=== PATIENT | female | born 1990 | race Caucasian/White ===

== ENCOUNTER → 2018-11-12 10:21 | Outpatient (CLI) | payer OTHER, SELFPAY ==
--- NOTE | 2018-11-12 10:25 | DI.US.S_ITS ---
PROCEDURE: US OB <= 14 WEEKS FETUS INDICATIONS: DATING OUTSIDE/PRIOR DATING DATA: Last menstrual period (LMP): 09/12/18. LMP-based estimated date of delivery (AJITH): 06/19/19. First dating scan (date and location): 11/12/18. Estimated date of delivery (AJITH) from first dating scan: 07/01/19. TECHNIQUE: Real-time scanning was performed of the fetus and maternal pelvic organs, with image documentation. Endovaginal scanning was also performed to better visualize the fetus and maternal ovaries. COMPARISON: None. FINDINGS: Embryo: [place]-rump length measures 1.0 cm corresponding to 7 weeks 0 days. Heart rate measures 132 beats per minute. Measurement variability in dating: +/- 4 weeks by LMP, +/- 7 days by mean sac diameter (use before 6 weeks gestation if crown-rump length not able to be measured), +/- 5 days by crown-rump length (up to 8 weeks 6 days gestation), +/- 7 days by crown-rump length (up to 13 weeks 6 days gestation). Maternal organs: Normal left ovary. Right corpus luteal cyst present. . Limited images through the kidneys demonstrate no hydronephrosis. IMPRESSION: 1. 7 week 0 day single living IUP. Dictated by: Krystian MOSS Interpreted: Alicia Lopez MD on 11/12/2018 at 13:23 Approved by: Alicia Lopez M.D. on 11/12/2018 at 14:01
== END ==
PROVIDERS: PCP Obstetrics & Gynecology; Visit Provider Obstetrics & Gynecology
DX: Z34.01 Encounter for supervision of normal first pregnancy, first trimester (principal); Z3A.01 Less than 8 weeks gestation of pregnancy
CPT/HCPCS: 76801; 76817

== ENCOUNTER → 2018-11-25 14:23 | Outpatient (CLI) | payer OTHER, SELFPAY ==
[2018-11-25 15:14] LABS: Add Manual Diff / Slide Review NO; Basophils Absolute Auto 0 /uL (0-100); Basophils Percent Auto 0.5 % (0-2); Eosinophils Absolute Auto 100 /uL (0-450); Eosinophils Percent Auto 0.6 % (2-4); Hematocrit 38.6 % (36-46); Hemoglobin 13.5 g/dL (12.0-16.0); Lymphocytes Absolute Auto 1500 /uL (1100-4500); Lymphocytes Percent Auto 16.1 % (25-40); Mean Corpuscular HGB Conc 34.9 % (30-36); Mean Corpuscular Hemoglobin 29.4 PG (26-34); Mean Corpuscular Volume 84.3 fL (80-100); Monocytes Absolute Auto 400 /uL (0-900); Monocytes Percent Auto 4.5 % (3-14); Neutrophils Absolute Auto 7100 /uL (1500-7000); Neutrophils Percent Auto 78.3 % (50-75); Platelet Count 276 X10^3/uL (150-400); Red Blood Cell Count 4.58 X10^6/uL (4.0-5.2); Red Cell Distribution Width 12.5 % (11.6-14.8); White Blood Cell Count 9.1 X10^3/uL (4.5-11.0)
[2018-11-25 15:17] LABS: Appearance Urine UA CLEAR; Bilirubin Urine UA NEGATIVE (NEGATIVE); Color Urine UA YELLOW; Glucose Urine UA NEGATIVE (Negative); Ketones Urine UA TRACE (NEGATIVE); Leukocyte Esterase Urine UA NEGATIVE (NEGATIVE); Nitrite Urine UA NEGATIVE (Negative); Occult Blood Urine UA NEGATIVE (Negative); Protein Urine UA TRACE (Negative); Specific Gravity Urine UA >=1.030 (1.000-1.035); Urobilinogen Urine UA 0.2 E.U./dL (0.2); pH Urine UA 5.5 (4.5-8.0)
[2018-11-25 16:48] LABS: Hepatitis B Surface Antigen NEGATIVE s/c (NEGATIVE); Rubella Antibody IgG 70.8 IU/mL (>15)
[2018-11-25 17:07] LABS: Hep C Virus Ab w/Reflex Quant NEGATIVE s/c (NEGATIVE)
[2018-11-27 17:43] LABS: HIV 1 & 2 Ab/Ag 4th Gen Combo NEGATIVE (NEGATIVE)
[2018-11-27 21:40] LABS: RPR Screen Nonreactive (Nonreactive)
== END ==
PROVIDERS: PCP Obstetrics & Gynecology; Visit Provider Obstetrics & Gynecology
DX: Z34.91 Encounter for supervision of normal pregnancy, unspecified, first trimester (principal)
CPT/HCPCS: 36415; 80055; 81003; 86787; 86803; 86850; 86900; 86901; 87086; 87389

== ENCOUNTER → 2018-12-10 11:30 | Outpatient (CLI) | payer OTHER, SELFPAY ==
[2018-12-10 16:59] LABS: Urine N gonorrhoeae NOT DETECTED
[2018-12-10 17:00] LABS: Urine Chlamydia NOT DETECTED
== END ==
PROVIDERS: PCP Obstetrics & Gynecology; Visit Provider Obstetrics & Gynecology
DX: Z11.3 Encounter for screening for infections with a predominantly sexual mode of transmission (principal)
CPT/HCPCS: 87491; 87591

== ENCOUNTER → 2019-01-07 17:00 | Outpatient (CLI) | payer OTHER, SELFPAY ==
[2019-01-07 20:27] LABS: Urine N gonorrhoeae NOT DETECTED
[2019-01-07 20:36] LABS: Urine Chlamydia NOT DETECTED
== END ==
PROVIDERS: PCP Obstetrics & Gynecology; Visit Provider Obstetrics & Gynecology
DX: A74.9 Chlamydial infection, unspecified (principal)
CPT/HCPCS: 87491; 87591

== ENCOUNTER 2019-02-16 05:42 | Emergency (ER) | payer OTHER, SELFPAY ==
[2019-02-16 05:51] VITALS: BP 109/57; PULSE 103; RESP 19; TEMP 36.2; O2SAT 99; BMI 22.6
--- NOTE | 2019-02-16 06:07 | ED.BACK ---
HPI - Back Pain/Injury General Chief Complaint: Back Pain/Injury Stated Complaint: maybe a kidney infection 20 weeks preg Time Seen by Provider: 02/16/19 05:42 Source: patient Mode of arrival: Ambulatory Limitations: no limitations History of Present Illness HPI Narrative: 28-year-old female here for evaluation of left-sided back pain. She states that was a fairly sudden onset that woke her from her sleep. Has not worsened since then. Does get worse with palpation. Denies any urinary symptoms or bowel changes. She is 20 weeks . has been uncomplicated to this point. She does have left-sided abdominal tenderness which she thinks is different from her back pain. called the OB nurse who told her to come to the emergency department for evaluation Related Data Home Medications Medication Instructions Recorded Confirmed prenat.vits,kaila,[id number] 1 tab PO DAILY 11/20/18 11/20/18 Previous Rx's Medication Instructions Recorded azithromycin 500 mg tablet 1,000 mg PO ONCE #2 tab 12/10/18 Allergies Allergy/AdvReac Type Severity Reaction Status Date / Time dextromethorphan Allergy Mild Hives Verified 11/20/18 13:26 [From Dimetapp Cold-Congestion] diphenhydramine Allergy Mild Hives Verified 11/20/18 13:26 [From Dimetapp Cold-Congestion] guaifenesin Allergy Mild Hives Verified 11/20/18 13:26 [From Dimetapp Cold-Congestion] phenylephrine Allergy Mild Hives Verified 11/20/18 13:26 [From Dimetapp Cold-Congestion] pseudoephedrine Allergy Mild Hives Verified 11/20/18 13:26 [From Dimetapp Cold-Congestion] peach AdvReac Intermediate Swelling Verified 11/21/18 15:12 of Lip/Tongue/Throat Review of Systems Constitutional Constitutional: Denies fever(s) and Denies headache(s) ENT Ears, Nose, Mouth, and Throat: Denies headache(s) Cardiovascular Cardiovascular: Denies chest pain and Denies dyspnea Respiratory Respiratory: Denies dyspnea Gastrointestinal Comments: Gravid abdomen with left-sided discomfort Genitourinary Genitourinary: Denies urinary frequency, Denies difficulty voiding, Denies dysuria, Denies pelvic pain and Denies vaginal discharge Musculoskeletal Musculoskeletal: Reports back pain, Denies myalgias and Denies arthralgias Integumentary/Breasts Skin/Breast: Denies lesions and Denies rash Neurologic Neurologic: Denies behavioral changes and Denies headache(s) Psychiatric Psychiatric: Denies behavioral changes Hematologic/Lymphatic Hematologic/Lymphatic: Denies easy bleeding and Denies easy bruising [facility] Medical History Patient denies medical problems (Acute) Social History Smoking Status: Former smoker Social History Smoking Status: Former smoker Exam Initial Vital Signs Initial Vital Signs: Vital Signs Temperature 97.1 F L 02/16/19 05:51 Pulse Rate 103 H 02/16/19 05:51 Respiratory Rate 19 02/16/19 05:51 Blood Pressure 109/57 L 02/16/19 05:51 Pulse Oximetry 99 02/16/19 05:51 Const General: cooperative, comfortable, well developed and well groomed Orientation: alert, awake and oriented x3 HENMT Head: normal to inspection and normocephalic Resp Effort & Inspection: normal respiratory effort Cardio Rate: regular rate GI Palpation: soft Other: Gravid abdomen Back/Spine/Pelvis Other: Patient with left-sided flank tenderness that is reproducible with palpation. Skin Lesions: no lesions Rashes: no rashes Neuro General: alert, awake and oriented x3 Cognition: normal cognition Speech: speech normal Extrem General: normal to inspection and capillary refill normal Psych Appearance: grossly normal and well kempt Course Orders Ordered: Discontinued Medications Hydrocodone Bitart/Acetaminophen ([place] 5/325) 1 tab PO NOW ONE Stop: 02/16/19 06:08 Last Admin: 02/16/19 06:29 Dose: 1 tab Documented by: JANEY Vital Signs Vital signs: Vital Signs - 8 hr 02/16/19 05:51 Temperature 97.1 F L Pulse Rate 103 H Respiratory Rate 19 Blood Pressure 109/57 L Pulse Oximetry 99 MDM - Back Pain/Injury Lab Data Labs: Urine Dip Bedside Urine Glucose Negative Bedside Urine Bilirubin - Negative Bedside Urine Ketone - Negative Urine Specific Stevenson 1.015 Bedside Urine Occult Blood - Negative Bedside Urine pH 6 Bedside Urine Protein +/- 15 Bedside Urine Urobilinogen - Negative Bedside Urine Nitrite - Negative Bedside Urine Leukocytes - Negative Esterase MDM Narrative Medical decision making narrative: Urine has protein but no red blood cells and no other signs of infection. She has fairly pinpoint left-sided flank tenderness to palpation that is and a band that goes from just lateral to her spine over to the posterior axillary line along the lower ribs. There is no skin changes over top of this area. Moving superior inferior from this area does not produce any pain. I feel that her physical exam is not consistent with pyelonephritis or kidney stones. The left-sided abdominal tenderness patient feels is unrelated to her back pain. She has no cramping. No vaginal bleeding. No loss of fluid. She feels that the left-sided abdominal pain is ligament pain. bedside ultrasound shows a single intrauterine . heart movement was detected with a rate of 143 beats per minute. there is also movement. I do suspect that her symptoms are musculoskeletal. Low suspicion for pre term labor given her physical exam. Unfortunately cannot give muscle relaxers secondary to her status however was given pain medication. Patient was given return precautions and follow-up instructions. She expressed understanding and agreement with plan. Discharge Plan Departure Patient Disposition: Home Clinical Impression: Lower back pain Qualifiers: Chronicity: acute Back pain laterality: left Sciatica presence: without sciatica Qualified Code(s): M54.5 - Low back pain Qualifiers: Weeks of gestation: 20 weeks Qualified Code(s): Z3A.20 - 20 weeks gestation of Instructions: Back Pain (Alternative Therapy) Activity Restrictions/Additional Instructions: If your symptoms worsen or he develop new symptoms such as vaginal bleeding or cramping or loss of fluid please return to the emergency department for further evaluation. You can take Tylenol for any discomfort. You can also use heat and/or ice and massage in light stretching. Contact your OB provider on Sunday for follow-up. Keep all of your scheduled medical appointments. Return to the emergency department for any new or worsening symptoms Prescriptions: No Action azithromycin 500 mg tablet 1,000 mg PO ONCE Qty: 2 RF: 0 prenat.vits,kaila,evo-hlcj-rtzrr tablet 1 tab PO DAILY RF: 0 Referrals: Yuridia Elise MD [Primary Care Provider] -
[2019-02-16] MEDS: HYDROCODONE/ACET 5/325 TABLET 1 TAB PO (06:29)
[2019-02-16 07:04] VITALS: BP 97/62; PULSE 87; RESP 16; TEMP 36.8; O2SAT 97
== END 2019-02-16 07:06 | disposition home or self-care (01) ==
PROVIDERS: Emergency Provider Emergency Medicine; PCP Obstetrics & Gynecology
DX: M54.5 Low back pain (principal)
CPT/HCPCS: 81003; 99282; 99283

== ENCOUNTER → 2019-02-18 12:04 | Outpatient (CLI) | payer OTHER, SELFPAY ==
--- NOTE | 2019-02-18 12:06 | DI.US.S_ITS ---
PROCEDURE: US OB >= 14 WEEKS FETUS INDICATIONS: ANATOMY OUTSIDE/PRIOR DATING DATA: Last menstrual period (LMP): 09/12/2018. LMP-based estimated date of delivery (AJITH): 06/19/2019. First dating scan (date and location): 11/12/2018. Estimated date of delivery (AJITH) from first dating scan: 07/01/2019. TECHNIQUE: Real-time scanning was performed of the fetus, with image documentation and biometric measurements. Endovaginal scanning: Not performed COMPARISON: [facility], OB <= 14 WEEKS FETUS, 12/03/2018, 16:32. [facility], , OB <= 14 WEEKS FETUS, 11/12/2018, 10:42. FINDINGS: General: A single living intrauterine gestation is present. Presentation: Vertex. Placenta: Placental position is posterior, without previa. Amniotic fluid index: 15.8 cm, normal range is 5-24 cm; largest pocket 4.3 cm. heart rate: 140 beats per minute. Maternal cervical canal: 3.9 cm long. Normal lower limit is 2.5 cm. biometrics: Biparietal diameter: 21 weeks and 3 days Head circumference: 21 weeks 2 days Abdominal circumference: 21 weeks 3 days Femur length: 20 weeks 2 days Estimated gestational age from initial scan: 21 weeks 0 day. Composite gestational age from present scan: 21 weeks 1 day Estimated weight and percentile: 387 gm; 41% for gestational age Measurement variability for biometric dating: +/- 7 days from 14 weeks to 15 weeks 6 days gestation, +/- 10 days from 16 weeks to 21 weeks 6 days gestation, +/- 2 weeks from 22 weeks to 27 weeks 6 days gestation, +/- 3 weeks for 28 weeks gestation or later. weight reference: 4500 g or EFW >90/95% is considered macrosomia or large for gestational age. EFW <10% is small for gestational age. EFW 5% or less is considered intra-uterine growth restriction. Anatomic survey: Neuro: Ventricles are non-dilated at less than 10 mm. Cisterna magna is normal at 3-11 mm. Cerebellum is normal in size and morphology. Nuchal skin fold: Normal at less than 6 mm between 14-21 weeks gestational age. Face: Nose and lips, facial profile are normal. Spine: No evidence for spina bifida. Heart: 4-chambered heart is present, with normal ventricular outflow tracts. Diaphragm: Diaphragm is intact. Stomach: Left-sided stomach is present. Kidneys: No hydronephrosis. Normal is less than 5 mm in 2nd trimester, less than 7 mm in 3rd trimester. Cord: 3-vessel cord has orthotopic insertion. Bladder: Normal in size. Extremities: All 4 extremities identified. IMPRESSION: 1. A single living intrauterine gestation with appropriate interval growth. 2. Normal anatomic survey. Dictated by: Kameron Caldera M.D. on 02/18/2019 at 18:20 Approved by: Kameron Caldera M.D. on 02/18/2019 at 18:25
== END ==
PROVIDERS: PCP Obstetrics & Gynecology; Visit Provider Obstetrics & Gynecology
DX: Z34.02 Encounter for supervision of normal first pregnancy, second trimester (principal); Z3A.21 21 weeks gestation of pregnancy
CPT/HCPCS: 76811

== ENCOUNTER 2019-05-03 03:17 | Outpatient (CLI) | payer OTHER, SELFPAY ==
--- NOTE | 2019-05-03 03:54 | PM.OBTRLD ---
Visit Information Visit Information Date of evaluation: 05/03/19 Primary OB Provider: Yuridia Elise On-call OB Provider: Trupti Decker Reason for Evaluation: Yes non-stress test non-stress test reason: decreased movement Comments/Additional reasons for admission: Fall to knees Vital Signs Vital Signs: Blood pressure 101/68, pulse of 107, temperature 97.6? PFSH Social History Smoking Status: Former smoker Exam Narrative Exam Narrative: Abdomen is soft, trace tenderness on the left side. Evaluation Evaluation Baseline heart rate: 130 Variability: Moderate (11-25) monitor accelerations: Present monitor decelerations: Absent Category of Tracing: I Diagnosis, Plan/Disposition Final Diagnosis (1) Decreased movement: Current Visit: Yes Status: Acute (2) 31 weeks gestation of : Current Visit: Yes Status: Acute Plan/Disposition Plan: Patient with decreased movement after fall to knees. Reactive nonstress test. Patient reassured. Precautions to return immediately if pain increases, vaginal bleeding or cramping. OB Disposition: home
== END 2019-05-03 04:00 | disposition home or self-care (01) ==
LOC: LABOR 08:26 → OB 05-09 11:16
PROVIDERS: PCP Obstetrics & Gynecology; Visit Provider Specialist
DX: O36.8130 Decreased fetal movements, third trimester, not applicable or unspecified (principal); Z3A.31 31 weeks gestation of pregnancy
CPT/HCPCS: 59025; G0378; G0379

== ENCOUNTER → 2019-05-06 12:16 | Outpatient (CLI) | payer OTHER, SELFPAY ==
[2019-05-06 13:38] LABS: Hematocrit 31.7 % (36-46)
[2019-05-06 15:41] LABS: GTT (PREG) 1 Hour PP 50gm Dose 99 mg/dL (76-139)
== END ==
PROVIDERS: PCP Obstetrics & Gynecology; Visit Provider Obstetrics & Gynecology
DX: Z34.83 Encounter for supervision of other normal pregnancy, third trimester (principal)
CPT/HCPCS: 36415; 82950; 85014; 85018; 86850

== ENCOUNTER → 2019-06-02 11:08 | Outpatient (CLI) | payer OTHER, SELFPAY ==
[2019-06-03 09:02] LABS: Strep Grp B PCR NEG for Grp B Strep
== END ==
PROVIDERS: PCP Obstetrics & Gynecology
DX: Z34.03 Encounter for supervision of normal first pregnancy, third trimester (principal); Z36.85 Encounter for antenatal screening for Streptococcus B; Z3A.35 35 weeks gestation of pregnancy
CPT/HCPCS: 87653

== ENCOUNTER 2019-06-12 01:37 | Outpatient (CLI) | payer OTHER, SELFPAY ==
--- NOTE | 2019-06-12 02:19 | PM.OBTRLD ---
Visit Information Visit Information Date of evaluation: 06/12/19 Primary OB Provider: Edison Brewer On-call OB Provider: Jada Shell Comments/Additional reasons for admission: 27YO @ [id number] here for evaluation after a fall from 2nd or 3rd camper step onto gravel ground. +FM. Feels low abdominal tighness, but no cramping. No abdominal pain, vaginal bleeding or leaking of fluid. Left ankle is tender and slightly swollen from fall earlinr on the day where she landed on her knees. Routine PN care w/ Vital Signs Vital Signs: BP 103/63, HR 103, T36.8 PFS Medical History Patient denies medical problems (Acute) Social History Smoking Status: Former smoker Review of Systems Review of Systems ROS Unobtainable: All systems reviewed & are unremarkable except as noted in HPI and below Musculoskeletal Musculoskeletal: Reports joint swelling (L ankle) Exam Vital Signs (past 8 hours): BP103/63, HR103, T36.8 Const General: cooperative and healthy appearing Nutritional Appearance: average body habitus Orientation: alert and oriented x3 Limitations: altered mental status OB/External & Speculum: deferred Presentation: vertex Other: No abdominal tenderness Extrem Other: Ambulating slowly, but full weight bearing on both legs Psych Appearance: grossly normal Speech and Movement: speech and movement normal Affect: normal affect Evaluation Evaluation Baseline heart rate: 125 Variability: Moderate (11-25) monitor accelerations: Present monitor decelerations: Absent Contraction Frequency (minutes): 0 Uterine Contraction Intensity: Mild Category of Tracing: I Diagnosis, Plan/Disposition Final Diagnosis (1) Status post fall: Current Visit: Yes Status: Acute Problem details: Term primipara S/P fall with no sx of labor or abruption (2) Left ankle sprain: Current Visit: Yes Status: Acute Plan/Disposition Plan: Will monitor for 1 hour and discharge to home if no changes. Recommend ankle brace for left ankle support and standard RICE recommendations for mild ankle sprain. Recommend Tyleno PRN pain with counseling on safe dosing. RTC weekly as previously scheduled OB Disposition: home
[2019-06-12] MEDS: ACETAMINOPHEN 325 MG TABLET 975 MG PO (03:11)
== END 2019-06-12 11:11 | disposition home or self-care (01) ==
LOC: LABOR 09:18 → OB 06-13 11:18
PROVIDERS: PCP Obstetrics & Gynecology; Visit Provider Nurse Practitioner Obstetrics & Gynecology
DX: O26.893 Other specified pregnancy related conditions, third trimester (principal); S93.402A Sprain of unspecified ligament of left ankle, initial encounter; W10.8XXA Fall (on) (from) other stairs and steps, initial encounter; Z3A.37 37 weeks gestation of pregnancy
CPT/HCPCS: 59025; 59050; G0378; G0379

== ENCOUNTER 2019-06-15 10:43 | Observation (INO) | payer OTHER, SELFPAY ==
--- NOTE | 2019-06-15 11:15 | DI.US.S_ITS ---
PROCEDURE: US RENAL COMPLETE INDICATIONS: SEVERE BACK PAIN TECHNIQUE: Real-time scanning was performed of the kidneys and bladder, with image documentation. COMPARISON: None. FINDINGS: Kidneys: Kidneys are normal in size. Right kidney measures 11.2 cm long; left kidney measures 10.2 cm long. Right renal cortical thickness is 1.4 cm; left renal cortical thickness is 1.8 cm. Renal cortical echotexture is normal. No hydronephrosis or nephrolithiasis. No suspicious solid mass lesions. Bladder: Nondistended. Miscellaneous: No free pelvic fluid. IMPRESSION: No hydronephrosis. Dictated by: Chrystal Chan M.D. on 06/15/2019 at 11:58 Approved by: Chrystal Chan M.D. on 06/15/2019 at 11:59
[2019-06-15 11:33] LABS: RBC Urine None Seen (0-5/HPF)
[2019-06-15 11:35] LABS: Appearance Urine UA CLEAR; Bilirubin Urine UA NEGATIVE (NEGATIVE); Color Urine UA YELLOW; Glucose Urine UA NEGATIVE (Negative); Ketones Urine UA NEGATIVE (NEGATIVE); Leukocyte Esterase Urine UA NEGATIVE (NEGATIVE); Nitrite Urine UA NEGATIVE (Negative); Occult Blood Urine UA NEGATIVE (Negative); Protein Urine UA NEGATIVE (Negative); Urobilinogen Urine UA 0.2 E.U./dL (0.2)
[2019-06-15 11:43] LABS: Squamous Epithelial Cell Urine 0-1 /HPF (0-5/HPF); WBC Urine 0-1/HPF (0-5/HPF)
[2019-06-15 11:44] LABS: Amorphous Sediment Urine 1+; Bacteria Urine Few (2-10); Culture Indicated Urine Cult Not Indicated
[2019-06-15 12:05] LABS: Add Manual Diff / Slide Review NO; Basophils Absolute Auto 100 /uL (0-100); Basophils Percent Auto 0.7 % (0-2); Eosinophils Absolute Auto 300 /uL (0-450); Eosinophils Percent Auto 3.5 % (2-4); Hematocrit 33.2 % (36-46); Hemoglobin 11.4 g/dL (12.0-16.0); Lymphocytes Absolute Auto 1700 /uL (1100-4500); Lymphocytes Percent Auto 17.1 % (25-40); Mean Corpuscular HGB Conc 34.2 % (30-36); Mean Corpuscular Hemoglobin 30.1 PG (26-34); Mean Corpuscular Volume 88.1 fL (80-100); Monocytes Absolute Auto 1000 /uL (0-900); Monocytes Percent Auto 10.1 % (3-14); Neutrophils Absolute Auto 6800 /uL (1500-7000); Neutrophils Percent Auto 68.6 % (50-75); Platelet Count 203 X10^3/uL (150-400); Red Blood Cell Count 3.77 X10^6/uL (4.0-5.2); Red Cell Distribution Width 16.7 % (11.6-14.8)
--- NOTE | 2019-06-15 14:15 | P.TNLD_ITS ---
Visit Information Visit Information Date of evaluation: 06/15/19 Primary OB Provider: Edison Brewer On-call OB Provider: Nini Junior Reason for Evaluation: Yes non-stress test Comments/Additional reasons for admission: This patient is a 28yo @37+5 presenting with constant paraspinous back pain that she reports started as a dull ache last night and sharpened this AM. She reports that the pain moves from her shoulder blades to her pelvis, but denies cramping, coming and going pain, lateral pain, abdominal or suprapubic pain, LOF, VB, decreased movement, fevers, chills, nausea, vomiting, diarrhea, dysuria, or any other complaints. The patient recently fell and sprained her left ankle, and admits that she has been favoring that leg. She has had an otherwise uncomplicated . Vital Signs Vital Signs: 112/63, HR 98, afebrile [facility] Medical History Patient denies medical problems (Acute) Social History Smoking Status: Former smoker Review of Systems Constitutional Constitutional: Reports as per HPI Cardiovascular Cardiovascular: Reports system reviewed; no additional complaints, except as documented Respiratory Respiratory: Reports system reviewed and no additional complaints, except as doc umented Gastrointestinal Gastrointestinal: Reports system reviewed and no additional complaints, except as documented Genitourinary Genitourinary: Reports system reviewed and no additional complaints, except as documented Musculoskeletal Musculoskeletal: Reports as per HPI Exam Const General: cooperative and healthy appearing Other: uncomfortable with movement, eating portuguese fries, resting in bed. GI Palpation: soft and No tender Other: BPP performed at bedside, 12/19 with MVP 5.1cm Back/Spine/Pelvis Other: Significant tenderness along paraspinous muscles bilaterally throughout back. No CVA tenderness. Objective Labs Result Diagrams: 06/15/19 11:52 Labs: Laboratory Results - last 24 hr 06/15/19 06/15/19 11:15 11:52 WBC 10.0 RBC 3.77 L Hgb 11.4 L Hct 33.2 L MCV 88.1 MCH 30.1 MCHC 34.2 RDW 16.7 H Plt Count 203 Neut % (Auto) 68.6 Lymph % (Auto) 17.1 L Banner % (Auto) 10.1 Eos % (Auto) 3.5 Baso % (Auto) 0.7 Neut # (Auto) 6800 Lymph # (Auto) 1700 Banner # (Auto) 1000 H Eos # (Auto) 300 Baso # (Auto) 100 Urine Color Yellow Urine Appearance Clear Urine pH 7.0 Ur Specific [place] 1.010 Urine Protein Negative Urine Glucose (UA) Negative Urine Ketones Negative Urine Occult Blood Negative Urine Nitrate Negative Urine Bilirubin Negative Urine Urobilinogen 0.2 Ur Leukocyte Esterase Negative Urine RBC None seen Urine WBC 0-1/hpf Ur Squamous Epith Cells 0-1 /hpf Amorphous Sediment 1+ Urine Bacteria Few (2-10) H Ur Culture Indicated? Cult not indicated Evaluation Evaluation Baseline heart rate: 125 Variability: Average (6-10) monitor accelerations: Present monitor decelerations: Absent Category of Tracing: I Laboratory results: Laboratory Tests 06/15/19 06/15/19 11:15 11:52 WBC 10.0 RBC 3.77 L Hgb 11.4 L Hct 33.2 L MCV 88.1 MCH 30.1 MCHC 34.2 RDW 16.7 H Plt Count 203 Neut % (Auto) 68.6 Lymph % (Auto) 17.1 L Banner % (Auto) 10.1 Eos % (Auto) 3.5 Baso % (Auto) 0.7 Neut # (Auto) 6800 Lymph # (Auto) 1700 Banner # (Auto) 1000 H Eos # (Auto) 300 Baso # (Auto) 100 Urine Color Yellow Urine Appearance Clear Urine pH 7.0 Ur Specific [place] 1.010 Urine Protein Negative Urine Glucose (UA) Negative Urine Ketones Negative Urine Occult Blood Negative Urine Nitrate Negative Urine Bilirubin Negative Urine Urobilinogen 0.2 Ur Leukocyte Esterase Negative Urine RBC None seen Urine WBC 0-1/hpf Ur Squamous Epith Cells 0-1 /hpf Amorphous Sediment 1+ Urine Bacteria Few (2-10) H Ur Culture Indicated? Cult not indicated Diagnosis, Plan/Disposition Plan/Disposition Plan: This patient has reassuring status, no sign of UTI or nephrolithiasis, no signs of infection, and an exam c/w musckuloskeletal pain. She was counselled on activities including gentle stretching and massage, hot packs, and tylenol, along with the usual antepartum precautions, and discharged. Patient was already scheduled for clinic f/u tomorrow. OB Disposition: home
== END 2019-06-15 14:34 | disposition home or self-care (01) ==
PROVIDERS: Admitting Provider Obstetrics & Gynecology; PCP Obstetrics & Gynecology; Referring Provider Obstetrics & Gynecology; Visit Provider Obstetrics & Gynecology
DX: O26.893 Other specified pregnancy related conditions, third trimester (principal); M54.89 Other dorsalgia; Z3A.37 37 weeks gestation of pregnancy
CPT/HCPCS: 36415; 59025; 76770; 76815; 81001; 85025; G0378; G0379

== ENCOUNTER 2019-06-29 09:21 | Outpatient (CLI) | payer OTHER, SELFPAY ==
--- NOTE | 2019-06-29 11:27 | P.TNLD_ITS ---
Visit Information Visit Information Date of evaluation: 06/29/19 Primary OB Provider: Edison Brewer On-call OB Provider: Trupti Decker Reason for Evaluation: Yes rupture of membranes Vital Signs Vital Signs: Blood pressure 111/67, pulse of 110, temperature 36.7? [facility] Social History Smoking Status: Former smoker Review of Systems Review of Systems Narrative: Patient had leakage of fluid yesterday after intercourse. She is not having significant contractions. Good movement. No headaches, scotomata, epigastric pain. ROS: Yes All systems reviewed with the patient and are negative except as otherwise documented Evaluation Evaluation Baseline heart rate: 130 Variability: Moderate (11-25) monitor accelerations: Present monitor decelerations: Absent Contraction Frequency (minutes): 0 Category of Tracing: I Non-invasive Membranes Rupture Test: negative Diagnosis, Plan/Disposition Final Diagnosis (1) 39 weeks gestation of : Current Visit: No Status: Acute (2) Premature uterine contractions in third trimester, antepartum: Current Visit: No Status: Acute Plan/Disposition Plan: Patient reassured she has not had rupture membranes and is not in active labor. She was discharged home to follow up with her routine OB Clinic OB Disposition: home
== END 2019-06-29 10:06 | disposition home or self-care (01) ==
LOC: OB 06-30 09:37
PROVIDERS: PCP Obstetrics & Gynecology
DX: O26.893 Other specified pregnancy related conditions, third trimester (principal); N89.8 Other specified noninflammatory disorders of vagina; Z3A.39 39 weeks gestation of pregnancy
CPT/HCPCS: 59025; 84112; G0378; G0379

== ENCOUNTER 2019-07-04 13:36 | Outpatient (CLI) | payer OTHER, SELFPAY ==
[2019-07-04 13:44] VITALS: BP 107/67; PULSE 100; RESP 15; TEMP 36.4; O2SAT 98; BMI 27.5
== END 2019-07-04 14:45 | disposition home or self-care (01) ==
LOC: ED 13:39 → AC 14:42 → OB 07-07 16:47
PROVIDERS: Emergency Provider Emergency Medicine
DX: O48.0 Post-term pregnancy (principal); Z3A.40 40 weeks gestation of pregnancy; W19.XXXA Unspecified fall, initial encounter
CPT/HCPCS: 59025; 99281; G0378

== ENCOUNTER 2019-07-07 17:48 | Inpatient (IN) | payer OTHER, SELFPAY ==
[2019-07-07 19:10] LABS: Add Manual Diff / Slide Review NO; Basophils Absolute Auto 0 /uL (0-100); Basophils Percent Auto 0.3 % (0-2); Eosinophils Absolute Auto 200 /uL (0-450); Eosinophils Percent Auto 2.2 % (2-4); Hematocrit 34.9 % (36-46); Hemoglobin 11.9 g/dL (12.0-16.0); Lymphocytes Absolute Auto 1600 /uL (1100-4500); Lymphocytes Percent Auto 15.1 % (25-40); Mean Corpuscular HGB Conc 34.1 % (30-36); Mean Corpuscular Hemoglobin 30.4 PG (26-34); Mean Corpuscular Volume 89.1 fL (80-100); Monocytes Absolute Auto 800 /uL (0-900); Monocytes Percent Auto 7.6 % (3-14); Neutrophils Absolute Auto 7700 /uL (1500-7000); Neutrophils Percent Auto 74.8 % (50-75); Platelet Count 261 X10^3/uL (150-400); Red Blood Cell Count 3.92 X10^6/uL (4.0-5.2); Red Cell Distribution Width 17.3 % (11.6-14.8); White Blood Cell Count 10.3 X10^3/uL (4.5-11.0)
[2019-07-07] MEDS: miSOPROStoL 25 MCG TABLET VAG (20:10)
[2019-07-07 21:45] VITALS: BP 113/70
[2019-07-08] MEDS: miSOPROStoL 25 MCG TABLET VAG (02:30)
[2019-07-08 05:13] VITALS: TEMP 36.9
[2019-07-08] MEDS: MORPHINE 2 MG/ML INJ IV (05:13)
[2019-07-08] MEDS: LACTATED RINGERS 1,000 ML 100 ML IV (05:18)
[2019-07-08] MEDS: OXYTOCIN PREMIX 30 UNIT/500 ML PLAST..BAG IV (08:01)
--- NOTE | 2019-07-08 08:18 | P.HPOB_ITS ---
OB HPI Date/Time Date of admission: 07/08/19 Date Patient Seen: 07/08/19 Time Patient Seen: 08:23 History of Present Condition Chief complaint: Induction : 1 Para: 0 Estimated Date of Delivery: 07/01/19 Estimated Gestational Age (weeks): 41 wee Narrative: Sahra Fitzgerald is a 28 year old female one para 0 at 41 weeks of . Patient was admitted on the evening of July 07 for misoprostol cervical ripening to be followed by Pitocin induction of labor Indications Indication for induction OB: post dates History of Present care: good care Ultrasounds: normal 1st trimester US and normal mid trimester US Obstetrical complications: none Medical complications: none Preadmission Labs Blood type: A (+) positive -: Antibody screen: negative, Cystic fibrosis screen: unknown, GBS status: negative, HBsAG: negative, HIV: negative, HSV 1: negative, HSV 2: negative and RPR/VDLR: negative -: Chlamydia screen: detected (Negative) and Gonorrhea screen: detected ( Negative) -: Rubella: immune and Varicella: immune HCT: 31.7 HCAB: negative PAP: Normal Integrated screen: Negative 1 hr GTT: 99 Narrative: Patient is a 28-year-old one para 0 at 41 weeks of with unfavorable cervix. She was mid on the evening of July 07 misoprostol cervical ripening. Patient had spontaneous rupture of the membrane at 4:00 a.m.. Evaluation Evaluation Variability: Average (6-10) monitor accelerations: Present monitor decelerations: Absent Contraction Frequency (minutes): 5 Uterine Contraction Intensity: Mild Category of Tracing: I Cervical dilation (cm): 1 Cervical effacement (%): 80 station: -1 Laboratory results: Laboratory Tests 07/07/19 07/07/19 19:00 19:00 WBC 10.3 RBC 3.92 L Hgb 11.9 L Hct 34.9 L MCV 89.1 MCH 30.4 MCHC 34.1 RDW 17.3 H Plt Count 261 Neut % (Auto) 74.8 Lymph % (Auto) 15.1 L Hamilton % (Auto) 7.6 Eos % (Auto) 2.2 Baso % (Auto) 0.3 Neut # (Auto) 7700 H Lymph # (Auto) 1600 Hamilton # (Auto) 800 Eos # (Auto) 200 Baso # (Auto) 0 Blood Type A Positive Antibody Screen Negative Non-invasive Membranes Rupture Test: positive Comments: Patient with misoprostol cervical ripening. Membranes grossly ruptured at 4:00 a.m. [facility]LY [facility] Medical History Patient denies medical problems (Acute) Social History Smoking Status: Former smoker Meds Home Medications and Allergies Home Medications Medication Instructions Recorded Confirmed Type prenat.vits,kaila,xbj-jadn-ccmus 1 tab PO DAILY 11/20/18 07/04/19 History Allergies Allergy/AdvReac Type Severity Reaction Status Date / Time dextromethorphan Allergy Mild Hives Verified 07/04/19 13:44 [From Dimetapp Cold-Congestion] diphenhydramine Allergy Mild Hives Verified 07/04/19 13:44 [From Dimetapp Cold-Congestion] guaifenesin Allergy Mild Hives Verified 07/04/19 13:44 [From Dimetapp Cold-Congestion] phenylephrine Allergy Mild Hives Verified 07/04/19 13:44 [From Dimetapp Cold-Congestion] pseudoephedrine Allergy Mild Hives Verified 07/04/19 13:44 [From Dimetapp Cold-Congestion] peach AdvReac Intermediate Swelling Verified 07/04/19 13:44 of Lip/Tongue/Throat Review of Systems Review of Systems ROS: Yes All systems reviewed with the patient and are negative except as oth erwise documented Exam Vital Signs (past 8 hours): - 07/08/19 05:13 Temperature 98.5 F Narrative Exam Narrative: HEENT within normal limits Chest clear percussion auscultation Cardiovascular system normal sinus rhythm Fundus 38 cm Vertex presentation Extremities without edema Cervix is 1 cm/90%/vertex/minus one station/cervix still posterior Objective Labs Result Diagrams: 07/07/19 19:00 Labs: Laboratory Results - last 24 hr 07/07/19 07/07/19 19:00 19:00 WBC 10.3 RBC 3.92 L Hgb 11.9 L Hct 34.9 L MCV 89.1 MCH 30.4 MCHC 34.1 RDW 17.3 H Plt Count 261 Neut % (Auto) 74.8 Lymph % (Auto) 15.1 L Hamilton % (Auto) 7.6 Eos % (Auto) 2.2 Baso % (Auto) 0.3 Neut # (Auto) 7700 H Lymph # (Auto) 1600 Hamilton # (Auto) 800 Eos # (Auto) 200 Baso # (Auto) 0 Blood Type A Positive Antibody Screen Negative Assessment and Plan Assessment and Plan Assessment and Plan narrative: 41 week intrauterine by good dates Unfavorable cervix status post cervical ripening with premature spontaneous rupture of the membranes at 4:00 a.m. Plan: Pitocin induction of labor Epidural anesthesia as needed
--- NOTE | 2019-07-08 15:51 | PM.OBPNLAB ---
Date/Time Date Patient Seen: 07/08/19 Time Patient Seen: 15:51 Pain Control Pain control: tolerating well and epidural Pelvic Exam Dilation (cm): 10 Effacement (%): 100 station: 0 Amniotic membrane status: Ruptured Contractions Contractions on admission: regular Monitor mode: External Pitocin rate (mU/min): 22 Contraction frequency (min): 3 Contraction duration (min): 60 Contraction pattern: Regular Contraction intensity: Strong/Firm Status status: Category ll Monitor Accelerations: Present Monitor Decelerations: Episodic Monitor Variability: Moderate Assessment and Plan Assessment: active labor Plan: continuous present management Comments: will start pushing. at 9.5 cm for 3 hrs. caput and moulding.
--- NOTE | 2019-07-08 17:37 | PM.OBPRVD ---
 Events: Labor Induction Labor & Delivery Delivery date: 07/08/19 Intrapartal events: None Cervical ripening method: per misoprostal protocol Induction method: per pitocin protocol Delivery augmentation: rupture of membranes Delivery monitor: external FHT and external uterine Route of delivery: Indication for instrumentation: nonreassuring FHR tracing Episiotomy description: Midline Delivery repair: chromic Estimated blood loss (mL): 350 Anesthesia type: Epidural Complications: None Narrative: The patient is a 28-year-old white female one para 0 who presented with post date is in. The patient received misoprostol cervical ripening. At 4:00 a.m. the membranes ruptured. At 8:30 a.m. a the patient was 1 cm 80% effaced with vertex at a minus one station. Pitocin was begun. Patient made early good progress initially to 4 cm and then to 9.5 cm. She stated 9.5 cm approximately 3 hours. Though there was a small rim of tissue very thin anteriorly the patient pushed and brought the head to the perineum. Her heart tone changes down to 70 beats per minute and forceps were prepared period because of the decreased heart tones an episiotomy was cut in the midline. The patient was able to then to push the baby out with one push without incident. The baby was a boy with scores of eight at 1 minutes and nine at 5 minutes in good condition There was no injury to the rectal sphincter. The placenta delivered spontaneously cord had three vessels. Cord blood was obtained. There are no cervical or vaginal lacerations. The episiotomy was closed in a standard fashion. Initially the vaginal epithelium was approximated with two 0 chromic suture to the introitus. 2 levator stitches were then placed two 0 chromic suture. These got any was then finished the routine fashion without difficulty. The uterus had involuted nicely. The patient tolerated the procedure well and was recovered in the delivery suite. Plan for aftercare: Routine
[2019-07-08] MEDS: HYDROCODONE/ACET 5/325 TABLET 1 TAB PO ×2 (19:20→23:15)
[2019-07-08 19:53] VITALS: TEMP 36.8
[2019-07-08] MEDS: KETOROLAC 30 MG/ML VIAL IV (19:53)
[2019-07-09] MEDS: KETOROLAC 30 MG/ML VIAL IV ×2 (02:00→08:26)
[2019-07-09 03:16] VITALS: TEMP 36.9
[2019-07-09] MEDS: HYDROCODONE/ACET 5/325 TABLET 1 TAB PO ×5 (03:16→20:58)
--- NOTE | 2019-07-09 07:44 | P.PNOB_ITS ---
Subjective - OB Subjective Patient comments: no complaints [place] baby status: doing well feeding status: exclusively bottle feeding Narrative: stautus post spontaneous vag delivery with episitomy without tear Date Patient Seen: 07/09/19 Time Patient Seen: 07:45 Interval history: 28 y admittted for induction and misoprostol cervical ripening. Membranes ruptured 0400 hrs. epidural placed. Good progress to 9.5 cm then sloow procress. Pushed and delivered liveborn male 7 lb 2 oz with 8/9/ Median episiotomy to facilitate delivetry because of decellerations Post doing well. Exam Vital Signs (past 8 hours): - 07/09/19 03:16 Temperature 98.4 F Narrative Exam Narrative: fundus u-2 lochia scant no perineal hematoma Objective Labs Result Diagrams: 07/07/19 19:00 Assessment & Plan Plan day: 1 plan OB: routine care Time Spent With Patient Time: Total time spent is greater than 50% in coordination of care (as documented) at patient's floor/unit and/or counseling patient: Time with patient: less than 15 minutes
[2019-07-09] MEDS: DOCUSATE 100 MG CAPSULE PO (08:00)
[2019-07-09] MEDS: FERROUS GLUCONATE 324 MG TABLET PO (08:00)
[2019-07-09] MEDS: IBUPROFEN 600 MG TABLET PO ×2 (14:34→20:58)
[2019-07-10] MEDS: ACETAMINOPHEN 325 MG TABLET 650 MG PO (01:42)
[2019-07-10] MEDS: HYDROCODONE/ACET 5/325 TABLET 1 TAB PO ×2 (01:43→10:32)
[2019-07-10] MEDS: IBUPROFEN 600 MG TABLET PO ×2 (03:23→10:33)
--- NOTE | 2019-07-10 07:35 | P.DS_ITS ---
Discharge Providers Provider Date of admission: 07/07/19 17:48 Discharge Date: 07/10/19 Primary care physician: Edison Brewer MD Consults: 07/09/19 17:42 Consult to [employer] Director Routine Comment: Discharge provider: Edison Brewer MD Summary Hospital Course Date Patient Seen: 07/10/19 Time Patient Seen: 07:35 Procedures: Misoprostol cervical ripening Pitocin induction of labor Spontaneous vaginal delivery Epidural anesthesia Median episiotomy with repair Hospital Course: Patient is a 28-year-old one now para one who presented for misoprostol cervical ripening and Pitocin induction of labor for postdatism. Patient was 41 weeks. Patient had spontaneous rupture membranes at 4:00 a.m.. Pitocin was begun at 8:00 a.m.. Epidural was placed at the same time. The patient made good progress to complete but remained at 9-3/4 cm for approximately 3 hours. She then pushed and delivered spontaneously a live born male infant with scores of eight at 1 minutes and nine at 5 minutes in good condition. the patient did well. She remained afebrile with stable vital signs. She was progressively ambulated. She was taking p.o. well. She was voiding in good volumes. Peripartum Data Delivery Method: Natural Vaginal Episiotomy description: Midline Procedures: Median episiotomy with repair complications: none Status at Discharge Cognitive/behavioral status at discharge: oriented Functional status at discharge: independent ambulation Overall status at discharge: patient is progressing back to baseline Time Spent with Patient Time attestation: Total time spent providing and/or coordinating discharge services: Time spent: Less than 30 minutes Objective Labs Result Diagrams: 07/07/19 19:00 Exam Vital Signs (past 8 hours): Fundus U minus two Lochia scant Perineum without ecchymosis Discharge Plan Discharge Plan Patient Disposition: Home Discharge orders & Medications Prescriptions: New oxycodone 10 mg Tablet 10 mg PO Q4HR PRN (Reason: Pain, Severe (7-10)) Qty: 10 RF: 0 ferrous gluconate 324 mg (38 mg iron) Tablet 324 mg PO DAILY Qty: 30 RF: 0 ibuprofen 600 mg Tablet 600 mg PO Q6HR PRN (Reason: Pain, Mild (1-3)) Qty: 20 RF: 0 Pao-Z-Rqzflv Cream 1 applic topical PRN PRN (Reason: Tenderness) Qty: 1 RF: 0 docusate sodium [DOK] 100 mg Capsule 100 mg PO DAILY Qty: 14 RF: 0 Dermoplast (with menthol) 20-0.5 % Aerosol 1 spray topical Q1HR PRN (Reason: perineal pain) Qty: 1 RF: 0 Discontinued prenat.vits,kaila,ycf-zuwo-jknfe tablet 1 tab PO DAILY RF: 0 Follow up/Referrals: Edison Brewer MD [Primary Care Provider] - 1 Month Discharge Health Status Multidrug resistant organism: No MDRO Diet/Activity/Treatments Diet: Diet as Tolerated Activity: Up ad philip Skin/Wound/Dressing Care Report to your healthcare provider any signs of infection, such as:: chills, fever, increased pain, unusual drainage and unusual redness Dressing: None Other wound treatment: Keep episiotomy clean and dry Visit Report/Discharge Packet Instructions: DI for Prescription Opioid Use Discharge Data Primary Care Provider: Edison Brewer
[2019-07-10 09:45] VITALS: BP 113/70; PULSE 80; RESP 18; TEMP 36.9
[2019-07-10] MEDS: FERROUS GLUCONATE 324 MG TABLET PO (10:32)
[2019-07-10] MEDS: DOCUSATE 100 MG CAPSULE PO (10:32)
== END 2019-07-10 11:40 | disposition home or self-care (01) | DRG 833 ==
DX: O48.0 Post-term pregnancy (principal); Z3A.41 41 weeks gestation of pregnancy; Z37.0 Single live birth; O76 Abnormality in fetal heart rate and rhythm complicating labor and delivery
CPT/HCPCS: 01967; 59050; 59400; 59409; 85025; 86850; 86900; 86901; G0379; J1885; J2270; J2590

== ENCOUNTER 2019-07-12 00:24 | Emergency (ER) | payer OTHER, SELFPAY ==
[2019-07-12 00:39] VITALS: BP 138/76; PULSE 89; RESP 16; TEMP 36.8; O2SAT 96; BMI 27.3
--- NOTE | 2019-07-12 00:57 | ED.PREGNANCY ---
HPI - General Chief complaint: Urogenital-Female Stated complaint: possible uterine infection post pardum Time Seen by Provider: 07/12/19 00:54 Source: patient Mode of arrival: Family Vehicle Limitations: no limitations History of Present Illness HPI Narrative: This is a 28-year-old female who had a vaginal delivery with episiotomy and delivered without any further complications. Patient was discharged on the . Patient has not had any fevers. No chest pain or shortness of breath, no nausea or vomiting. She has had some left flank pain, some lower pelvic pain and vaginal discomfort. Patient states she has been taking ibuprofen Q 6 hours although she missed her 12:30 p.m. dose as well as oxycodone as needed. Patient states she is taking half for a quarter tablet of the oxycodone as it is pretty strong for her. Patient states she has had blood she has had 1 clot the size of a quarter but otherwise some bright red blood along with some brownish blood. Patient has not appreciated any other discharge. Related Data Previous Rx's Medication Instructions Recorded benzocaine-menthol [Dermoplast 1 spray TOPICAL Q1HR PRN #1 g 07/10/19 (with menthol)] docusate sodium [DOK] 100 mg PO DAILY #14 cap 07/10/19 ferrous gluconate 324 mg PO DAILY #30 tab 07/10/19 ibuprofen 600 mg PO Q6HR PRN #20 tab 07/10/19 lanolin [Qnu-I-Dfacst] 1 applic TOPICAL PRN PRN #1 g 07/10/19 oxycodone 10 mg PO Q4HR PRN #10 tab 07/10/19 benzocaine-benzethonium 1 spray TOP Q1H PRN #78 gram 07/12/19 [Dermoplast First Aid] cephalexin [Keflex] 500 mg PO BID #20 cap 07/12/19 Allergies Allergy/AdvReac Type Severity Reaction Status Date / Time dextromethorphan Allergy Mild Hives Verified 07/04/19 13:44 [From Dimetapp Cold-Congestion] diphenhydramine Allergy Mild Hives Verified 07/04/19 13:44 [From Dimetapp Cold-Congestion] guaifenesin Allergy Mild Hives Verified 07/04/19 13:44 [From Dimetapp Cold-Congestion] phenylephrine Allergy Mild Hives Verified 07/04/19 13:44 [From Dimetapp Cold-Congestion] pseudoephedrine Allergy Mild Hives Verified 07/04/19 13:44 [From Dimetapp Cold-Congestion] peach AdvReac Intermediate Swelling Verified 07/04/19 13:44 of Lip/Tongue/Throat Review of Systems Review of Systems ROS Unobtainable: All systems reviewed & are unremarkable except as noted in HPI and below PMFSH - Past Medical History Medical history: Reports no medical history Surgical history: Reports no surgical history Exam Narrative Exam Narrative: GENERAL: Alert and oriented x three, well-nourished, well-appearing female in mild distress HEENT: Head normocephalic, atraumatic, EOMI, pupils reactive, face symmetric, moist mucous membranes NECK: Supple, full range of motion CARDIOVASCULAR: Regular rate and rhythm without murmurs, rubs or gallops. RESPIRATORY: Breath sounds equal bilaterally, no wheezes rales or rhonchi. ABDOMEN: Soft, mild suprapubic tenderness. Normoactive bowel sounds all 4 quadrants. No guarding or rebound, rigidity, no mass : Positive left CVA tenderness, no right CVA tenderness. Female exam patient has a PCR me can see 1 suture appears well approximated with small amount of pink tissue does not appear to be dehisced. There is no erythema or drainage consistent with infection. Patient is tender in that area but not exquisitely so. Labia is nontender to exam. Patient has a small pink soft hemorrhoid at the rectum. EXTREMITIES: Normal range of motion, no clubbing or edema. Neurovascularly intact NEUROLOGICAL: Cranial nerves II through XII grossly intact. Moving all extremities SKIN: Warm, dry, no petechiae, no rashes or lesions. Initial Vital Signs Initial Vital Signs: Vital Signs Temperature 98.3 F 07/12/19 00:39 Pulse Rate 89 07/12/19 00:39 Respiratory Rate 16 07/12/19 00:39 Blood Pressure 138/76 07/12/19 00:39 Pulse Oximetry 96 07/12/19 00:39 Course Orders Ordered: ED Orders 07/12/19 01:25 Urinalysis and Microscopic Stat Urine Culture Stat Discontinued Medications Cefazolin Sodium (Keflex 250 Mg Prepack) 1 bottle MISC SEEINSTR ONE Stop: 07/12/19 02:07 Ibuprofen (Advil) 800 mg PO NOW ONE Stop: 07/12/19 01:09 Last Admin: 07/12/19 01:12 Dose: 800 mg [facility] Vital Signs Vital signs: Vital Signs - 8 hr 07/12/19 00:39 Temperature 98.3 F Pulse Rate 89 Respiratory Rate 16 Blood Pressure 138/76 Pulse Oximetry 96 MDM - OB/Uterine Contractions Lab Data Labs: Lab Results 07/12/19 Range/Units 01:25 Urine Color Yellow Urine Appearance Clear Urine pH 7.0 (4.5-8.0) Ur Specific Hegins 1.015 (1.000-1.035) Urine Protein Negative (Negative) Urine Glucose (UA) Negative (Negative) g/dL Urine Ketones Negative (NEGATIVE) Urine Occult Blood 3+ H (Negative) Urine Nitrate Negative (Negative) Urine Bilirubin Negative (NEGATIVE) Urine Urobilinogen 0.2 (0.2) E.U./dL Ur Leukocyte Esterase Trace H (NEGATIVE) Urine RBC 10-30/hpf H (0-5/HPF) Urine WBC 0-1/hpf (0-5/HPF) Ur Squamous Epith Cells 0-1 /hpf (0-5/HPF) Urine Bacteria Occasional (0-1) (None) Ur Culture Indicated? Specimen cultured [facility] Narrative Medical decision making narrative: Discussed with patient she has not had anything for pain in about 6 hours, was given ibuprofen here the normal dose that she has been taking has been 600 mg. she does have some mild left flank pain she did have a catheter secondary to epidural so point of care urine was ordered and shows leuks but no nitrates. She has left flank pain. On exam patient's abdomen is mildly tender. On vaginal exam patient is a PCR me appears to be healing appropriately. Discharge Plan Departure Patient Disposition: Home Clinical Impression: Episiotomy pain Discharge Date/Time: 07/12/19 02:15 Instructions: DI for Episiotomy Activity Restrictions/Additional Instructions: Follow up with Dr. Brewer this following week. Call Sunday morning for an appointment. Your urine shows possibly uti or kidney infection, start antibiotics now. Urine culture is pending and takes 48 hours to result. Continue with ibuprofen 600 mg every 6 hours as needed for pain. You may take narcotic pain medication but this medication can make you sleepy so do not drive, perform hazardous activities or make any major decisions while taking it I would also have someone present while your with the baby so few fall asleep they can take the baby. Make sure you are taking a stool softener if you are taking narcotics until you are having soft stools and I would highly recommend drinking 6-8, 8 oz glasses of water or fluids daily. You may use Dermoplast spray hourly as needed to the area. I recommend using a donut or similar type pillow to avoid sitting on your episiotomy site, side-lying and lying on her back as much as possible. Return to the ER if you have fevers, if you are having foul discharge, purulence discharge from the vaginal area, increasing pain in your abdomen flank or vaginal region, fevers greater than 100.4, persistent vomiting, black or bloody stools or other new or concerning symptoms Prescriptions: New Dermoplast First Aid 20-0.2 % aerosol 1 spray TOP Q1H PRN (Reason: pain) Qty: 78 RF: 0 cephalexin [Keflex] 500 mg capsule 500 mg PO BID Qty: 20 RF: 0 No Action Dermoplast (with menthol) 20-0.5 % Aerosol 1 spray topical Q1HR PRN (Reason: perineal pain) Qty: 1 RF: 0 docusate sodium [DOK] 100 mg Capsule 100 mg PO DAILY Qty: 14 RF: 0 ibuprofen 600 mg Tablet 600 mg PO Q6HR PRN (Reason: Pain, Mild (1-3)) Qty: 20 RF: 0 Rcy-M-Rpkjpl Cream 1 applic topical PRN PRN (Reason: Tenderness) Qty: 1 RF: 0 ferrous gluconate 324 mg (38 mg iron) Tablet 324 mg PO DAILY Qty: 30 RF: 0 oxycodone 10 mg Tablet 10 mg PO Q4HR PRN (Reason: Pain, Severe (7-10)) Qty: 10 RF: 0 Referrals: Edison Brweer MD [Primary Care Provider] -
[2019-07-12] MEDS: IBUPROFEN 400 MG TABLET 800 MG PO (01:12)
[2019-07-12 01:53] LABS: Appearance Urine UA CLEAR; Bilirubin Urine UA NEGATIVE (NEGATIVE); Color Urine UA YELLOW; Glucose Urine UA NEGATIVE (Negative); Ketones Urine UA NEGATIVE (NEGATIVE); Leukocyte Esterase Urine UA TRACE (NEGATIVE); Nitrite Urine UA NEGATIVE (Negative); Occult Blood Urine UA 3+ (Negative); Protein Urine UA NEGATIVE (Negative); Specific Gravity Urine UA 1.015 (1.000-1.035); Urobilinogen Urine UA 0.2 E.U./dL (0.2)
--- NOTE | 2019-07-12 01:55 | PC.NURSE ---
RN in room to hospital administrative assistant Dr for pelvic exam, pt tolerated well.
[2019-07-12 02:03] LABS: Bacteria Urine Occasional (0-1); Culture Indicated Urine Specimen Cultured; RBC Urine 10-30/HPF (0-5/HPF); Squamous Epithelial Cell Urine 0-1 /HPF (0-5/HPF); WBC Urine 0-1/HPF (0-5/HPF)
[2019-07-12] MEDS: cephALEXin 250 MG PREPACK 1 BOTTLE MISC (02:10)
[2019-07-12 02:15] VITALS: BP 129/69; PULSE 80; RESP 16; O2SAT 97
== END 2019-07-12 02:15 | disposition home or self-care (01) ==
PROVIDERS: Emergency Provider Emergency Medicine
DX: O90.89 Other complications of the puerperium, not elsewhere classified (principal)
CPT/HCPCS: 81001; 87086; 99283

== ENCOUNTER 2019-10-22 09:04 | Emergency (ER) | payer OTHER, SELFPAY ==
[2019-10-22 09:14] VITALS: BP 109/75; PULSE 82; RESP 14; TEMP 36.8; O2SAT 98
[2019-10-22 09:25] VITALS: BP 109/75; PULSE 75; RESP 14; TEMP 36.8; O2SAT 96
--- NOTE | 2019-10-22 09:38 | PC.NURSE ---
When applying ice pack to patient's neck I noticed that lower on her neck around C6-T1 levels is swollen and tender to touch bilaterally and on the midline. No reports of trauma. Provider notified.
--- NOTE | 2019-10-22 09:55 | ED_ITS ---
HPI - Neck Pain/Injury General Chief Complaint: Neck Pain/Injury Stated Complaint: right neck/arm pain 9-10 xtoday Time Seen by Provider: 10/22/19 09:08 Source: patient Mode of arrival: Family Vehicle Limitations: no limitations History of Present Illness HPI Narrative: Patient is an otherwise healthy 28-year-old female here for evaluation of right upper back/neck pain. 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 She states that she felt a ?pop? in her right upper back. Since then she has had extreme discomfort. Some tingling down her arm. Pain comes when she tries to strain her neck. No headache. No prior injuries. Has not tried anything for the symptoms prior to arrival. Related Data Previous Rx's Medication Instructions Recorded benzocaine-menthol [Dermoplast 1 spray TOPICAL Q1HR PRN #1 g 07/10/19 (with menthol)] ibuprofen 600 mg PO Q6HR PRN #20 tab 07/10/19 oxycodone 10 mg PO Q4HR PRN #10 tab 07/10/19 benzocaine-benzethonium 1 spray TOP Q1H PRN #78 gram 07/12/19 [Dermoplast First Aid] cephalexin [Keflex] 500 mg PO BID #20 cap 07/12/19 etonogestrel 0.12 mg-ethinyl 1 vaginalrin VAG Q4W #3 each 08/01/19 estradiol 0.015 mg/24 hr vaginal ring norethindrone (contraceptive) 0.35 0.35 mg PO DAILY #28 tab 08/01/19 mg tablet cyclobenzaprine 10 mg PO TID PRN #14 tab 10/22/19 Allergies Allergy/AdvReac Type Severity Reaction Status Date / Time dextromethorphan Allergy Mild Hives Verified 08/01/19 10:24 [From Dimetapp Cold-Congestion] diphenhydramine Allergy Mild Hives Verified 08/01/19 10:24 [From [place]app Cold-Congestion] guaifenesin Allergy Mild Hives Verified 08/01/19 10:24 [From [place]etapp Cold-Congestion] phenylephrine Allergy Mild Hives Verified 08/01/19 10:24 [From [place]etapp Cold-Congestion] pseudoephedrine Allergy Mild Hives Verified 08/01/19 10:24 [From Dimetapp Cold-Congestion] peach AdvReac Intermediate Swelling Verified 08/01/19 10:24 of Lip/Tongue/Throat Review of Systems Constitutional Constitutional: Denies chills and Denies headache(s) Eyes Eyes: Denies change in vision ENT Ears, Nose, Mouth, and Throat: Denies headache(s) Cardiovascular Cardiovascular: Denies chest pain and Denies dyspnea Respiratory Respiratory: Denies dyspnea Gastrointestinal Gastrointestinal: Denies abdominal pain Musculoskeletal Musculoskeletal: Reports tingling Comments: Neck pain Integumentary/Breasts Skin/Breast: Denies lesions and Denies rash Neurologic Neurologic: Denies behavioral changes, Denies headache(s) and Reports tingling Psychiatric Psychiatric: Denies behavioral changes Hematologic/Lymphatic Hematologic/Lymphatic: Denies easy bleeding and Denies easy bruising Allergic/Immunologic Allergic/Immunologic: Denies urticaria Patient History Medical History Patient denies medical problems (Acute) Social History Smoking Status: Current every day smoker Smoking Status: Current every day smoker alcohol intake frequency: a few times a week Alcohol type: other Substance Use Type: marijuana Exam Initial Vital Signs Initial Vital Signs: Vital Signs Temperature 98.2 F 10/22/19 09:14 Pulse Rate 82 10/22/19 09:14 Respiratory Rate 14 10/22/19 09:14 Blood Pressure 109/75 10/22/19 09:14 Pulse Oximetry 98 10/22/19 09:14 Const General: cooperative, No comfortable (Uncomfortable) and well developed Limitations: mental status not altered [facility] Head: normal to inspection and normocephalic Neck Lymphatic: No lymphadenopathy Resp Effort & Inspection: normal respiratory effort Cardio Rate: regular rate Pulses: radial pulses present on the right Back/Spine/Pelvis Cervical Spine: cervical muscular tenderness (Right-sided), pain with cervical ROM, No cervical spinal tenderness and cervical ROM abnormal Thoracic/Lumbar Spine: No thoracic spinal tenderness and No lumbar spinal tenderness Skin Lesions: no lesions Rashes: no rashes Neuro General: patient alert and patient awake Cognition: normal cognition Speech: speech normal Sensory Exam: no sensory deficits noted Extrem General: normal to inspection and capillary refill normal Psych Appearance: grossly normal and well kempt Scores GCS [place] coma scale eye opening: Spontaneous Robert coma scale verbal response: Orientated Robert coma scale motor response: Obey commands [place] coma scale total score: 15 Course Orders Ordered: Discontinued Medications Diazepam (Valium) 5 mg PO NOW ONE Stop: 10/22/19 09:56 Last Admin: 10/22/19 10:13 Dose: 5 mg Documented by: UCHE Ketorolac Tromethamine (Toradol) 30 mg IM NOW ONE Stop: 10/22/19 09:56 Last Admin: 10/22/19 10:37 Dose: 30 mg Documented by: [facility] Vital Signs Vital signs: Vital Signs - 8 hr 10/22/19 09:14 10/22/19 09:25 10/22/19 10:20 Temperature 98.2 F 98.2 F Pulse Rate 82 75 80 Respiratory Rate 14 14 12 Blood Pressure 109/75 Blood Pressure [Right Arm] 109/75 106/69 Pulse Oximetry 98 96 99 10/22/19 10:42 Temperature Pulse Rate 74 Respiratory Rate 12 Blood Pressure Blood Pressure [Right Arm] 108/75 Pulse Oximetry 98 MDM - Neck Pain/Injury MDM Narrative Medical decision making narrative: Difficult for the patient to pinpoint exactly where her discomfort is however does appear to be over the levator scapula a on the right. She does have a fullness in this area unsure if this is related to the fact that she has her neck flexed because of the discomfort. There is also a small possibility that she has torn this muscle otherwise feel this is less likely. She is neurologically intact in her right upper extremity. Suspect that the tingling she has feelings related to the pain in her shoulder. There is not 1 specific pinpoint area of tenderness that would be amenable to a trigger point injection. Patient was given Toradol and Valium. This did improve her symptoms slightly. I feel we can hold on any radiologic studies. Will treat symptomatically. Patient was given return precautions and follow-up instructions. She expressed understanding and agreement. Discharge Plan Departure Patient Disposition: Home Clinical Impression: Acute neck pain Discharge Date/Time: 10/22/19 11:22 Instructions: DI for Neck Pain Activity Restrictions/Additional Instructions: You have no restrictions on your activities other than avoiding activities that make your symptoms worse. Contact your primary care provider for follow-up. Return to the emergency department for any new or worsening symptoms Prescriptions: New cyclobenzaprine 10 mg tablet 10 mg PO TID PRN (Reason: muscle spasm) Qty: 14 RF: 0 No Action norethindrone (contraceptive) [Ortho Micronor] 0.35 mg tablet 0.35 mg PO DAILY Qty: 28 RF: 0 etonogestrel-ethinyl estradiol [NuvaRing] 0.12-0.015 mg/24 hr ring 1 vaginalrin VAG Q4W Qty: 3 RF: 4 Dermoplast First Aid 20-0.2 % aerosol 1 spray TOP Q1H PRN (Reason: pain) Qty: 78 RF: 0 cephalexin [Keflex] 500 mg capsule 500 mg PO BID Qty: 20 RF: 0 Dermoplast (with menthol) 20-0.5 % Aerosol 1 spray topical Q1HR PRN (Reason: perineal pain) Qty: 1 RF: 0 ibuprofen 600 mg Tablet 600 mg PO Q6HR PRN (Reason: Pain, Mild (1-3)) Qty: 20 RF: 0 oxycodone 10 mg Tablet 10 mg PO Q4HR PRN (Reason: Pain, Severe (7-10)) Qty: 10 RF: 0
[2019-10-22] MEDS: diazePAM 5 MG TABLET PO (10:13)
--- NOTE | 2019-10-22 10:18 | PC.NURSE ---
Patient was medicated for muscle spasms but wanted to wait on the Toradol injection until the diazepam takes effect.
[2019-10-22 10:20] VITALS: BP 106/69; PULSE 80; RESP 12; O2SAT 99
[2019-10-22] MEDS: KETOROLAC 60 MG/2 ML VIAL 30 MG IM (10:37)
[2019-10-22 10:42] VITALS: BP 108/75; PULSE 74; RESP 12; O2SAT 98
--- NOTE | 2019-10-22 10:49 | PC.NURSE ---
Patient was medicated with diazepam. She was assessed 20 minutes later if she would be ok for the toradol inj. Patient tolerated procedure well.
== END 2019-10-22 11:22 | disposition home or self-care (01) ==
PROVIDERS: Emergency Provider Emergency Medicine
DX: M54.2 Cervicalgia (principal); M54.6 Pain in thoracic spine
CPT/HCPCS: 96372; 99283; J1885

== ENCOUNTER → 2019-12-16 12:07 | Outpatient (CLI) | payer OTHER, SELFPAY ==
--- NOTE | 2019-12-16 12:09 | DI.US.S_ITS ---
PROCEDURE: US SOFT TISSUE HEAD AND NECK INDICATIONS: SOFT TISSUE SWELLING POSTERIOR NECK X 2 MONTHS TECHNIQUE: Real-time scanning was performed of the neck region of interest, with image documentation. COMPARISON: [facility], CR, XR CERVICAL SPINE 4V OR 5V, 12/16/2019, 12:02. FINDINGS: These images demonstrate no mass, fluid collection, or other focal discrete abnormality in the posterior midline neck area of interest. IMPRESSION: No sonographic abnormality demonstrated. If there is continued clinical concern for an underlying mass lesion in the posterior neck soft tissues, a CT neck with IV contrast would be recommended. Dictated by: Александр Diop M.D. on 12/16/2019 at 13:54 Approved by: Александр Doip M.D. on 12/16/2019 at 13:56
--- NOTE | 2019-12-16 12:09 | DI.RAD.S_ITS ---
PROCEDURE: XR CERVICAL SPINE 4V OR 5V INDICATIONS: Cervical radiculopathy TECHNIQUE: 5 views of the cervical spine acquired. COMPARISON: None. FINDINGS: Bones: Normal cervical spine vertebral body height and alignment. No fracture. No suspicious osseous lesion. Intervertebral disc spaces are congruent and maintained. Facet joint spaces are congruent and maintained. Oblique views demonstrate no evidence of significant osseous neural foraminal narrowing. Soft tissues: No prevertebral soft tissue swelling. IMPRESSION: No acute finding or significant degenerative changes. Dictated by: Александр Diop M.D. on 12/16/2019 at 13:02 Approved by: Александр Diop M.D. on 12/16/2019 at 13:03
--- NOTE | 2019-12-16 12:49 | PC.NURSE ---
Spoke with pt in US, pt stating visual changes. Pt stated no headache. 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 Pupils equal reactive to light. No facial droop noted, mouth symmetrical. Blood pressure 110/60 HR 110. Pt stated she has not been drinking enough fluids. Encouraged pt to drink fluids at home or be seen in the ER. Pt stated she will go home and see if the visual disturbance resolve. I encouraged pt to seek medical help if symptoms d To not resolve. Maye Keating RN
== END ==
PROVIDERS: Referring Provider Physical Medicine & Rehabilitation; Visit Provider Physician Assistant
DX: M54.12 Radiculopathy, cervical region (principal); M54.2 Cervicalgia; R22.9 Localized swelling, mass and lump, unspecified
CPT/HCPCS: 72050; 76536

== ENCOUNTER → 2019-12-19 13:35 | Outpatient (CLI) | payer OTHER, SELFPAY ==
--- NOTE | 2019-12-19 13:37 | DI.CT.S_ITS ---
PROCEDURE: CT SOFT TISSUE NECK W CON INDICATIONS: Small palpable lesion in the posterior left paramedian lower neck soft tissues. TECHNIQUE: After the administration of intravenous contrast, 3.0 mm axial sections acquired from the sella to the aortic arch. Additional oblique axial 3.0 mm sections acquired through the pharynx. 3 mm thick coronal and sagittal reformats were generated. For radiation dose reduction, the following was used: automated exposure control. COMPARISON: [facility], SOFT TISSUE HEAD AND NECK, 12/16/2019, 12:30. FINDINGS: Image quality: Excellent. Lymph nodes: No enlarged lymph nodes seen throughout the neck. Vessels: Visualized vasculature appears patent. Neck spaces: The oropharynx, nasopharynx, and pharynx demonstrate no mucosal lesions. The vocal cords, false vocal cords, pyriform sinuses, epiglottis, vallecula, and tongue base all appear normal. Extramucosal spaces appear unremarkable. Glands: The parotid and submandibular glands appear normal. Thyroid gland is normal. Miscellaneous: Visualized brain and orbits appear normal. Lung apices appear clear. Superficial soft tissues appear normal. Bones: No suspicious bony lesions. Visualized sinuses and mastoids appear unremarkable. IMPRESSION: 1. No discrete mass or other abnormality identified in reported region of palpable lesion. 2. No mucosal-based masses. 3. No lymphadenopathy based on size criteria. Dictated by: Elayne Eric MD, PhD on 12/19/2019 at 15:28 Approved by: Elayne Eric MD, PhD on 12/19/2019 at 15:33
== END ==
PROVIDERS: Referring Provider Physician Assistant; Visit Provider Physician Assistant
DX: M54.2 Cervicalgia (principal); R22.9 Localized swelling, mass and lump, unspecified
CPT/HCPCS: 70491; Q9967

== ENCOUNTER 2020-06-15 13:05 | Emergency (ER) | payer OTHER, SELFPAY ==
[2020-06-15] VITALS (8 sets, daily range): BP systolic 102–120; BP diastolic 55–77; PULSE 82–116; RESP 15–22; TEMP 36.7; O2SAT 98–100; BMI 27.3
--- NOTE | 2020-06-15 13:16 | DI.RAD.S_ITS ---
PROCEDURE: XR CHEST 1V INDICATIONS: sob TECHNIQUE: One view of the chest was acquired. COMPARISON: None. FINDINGS: Surgical changes and devices: None. Lungs and pleura: Lungs are clear. No pleural effusions or pneumothorax. Mediastinum: Mediastinal contours appear normal. Heart size is normal. Bones and chest wall: No suspicious bony lesions. Overlying soft tissues appear unremarkable. IMPRESSION: No acute cardiopulmonary pathology. Dictated by: Manpreet Kowalski M.D. on 06/15/2020 at 13:15 Approved by: Manpreet Kowalski M.D. on 06/15/2020 at 13:19
[2020-06-15 13:23] LABS: Add Manual Diff / Slide Review NO; Basophils Absolute Auto 0 /uL (0-100); Basophils Percent Auto 0.7 % (0-2); Eosinophils Absolute Auto 100 /uL (0-450); Hematocrit 37.7 % (36-46); Lymphocytes Absolute Auto 1600 /uL (1100-4500); Lymphocytes Percent Auto 29.6 % (25-40); Mean Corpuscular HGB Conc 34.4 % (30-36); Mean Corpuscular Volume 84.5 fL (80-100); Monocytes Absolute Auto 400 /uL (0-900); Monocytes Percent Auto 8.2 % (3-14); Neutrophils Absolute Auto 3200 /uL (1500-7000); Neutrophils Percent Auto 59.5 % (50-75); Platelet Count 255 X10^3/uL (150-400); Red Blood Cell Count 4.46 X10^6/uL (4.0-5.2); Red Cell Distribution Width 12.9 % (11.6-14.8); White Blood Cell Count 5.4 X10^3/uL (4.5-11.0)
[2020-06-15] MEDS: SODIUM CHLORIDE 0.9% 1,000 ML 1000 ML IV (13:24)
[2020-06-15 13:36] LABS: D Dimer < 200 ng/mL (<230)
[2020-06-15] MEDS: ASPIRIN 81 MG CHEW TAB 324 MG PO (13:36)
[2020-06-15 13:38] LABS: Alanine Aminotransferase 12 IU/L (<35); Albumin 4.4 g/dL (3.5-5.0); Albumin Globulin Ratio 1.3 (1.0-2.8); Alkaline Phosphatase 63 U/L (38-126); Aspartate Aminotransferase 18 IU/L (14-36); BUN Creatinine Ratio 17.6 (6-22); Bilirubin Total 0.6 mg/dL (0.2-1.3); Blood Urea Nitrogen 9 mg/dL (7-17); Calcium 9.2 mg/dL (8.4-10.2); Carbon Dioxide 29 mmol/L (22-32); Chloride 103 mmol/L (98-107); Creatine Kinase 26 U/L (30-135); Estimated Glomerular Filt Rate > 60.0 mL/min (>60); Globulin 3.3 g/dL (1.7-4.1); Glucose 100 mg/dL (70-100); HEMOLYSIS < 15 (0-50); Lipase 58 U/L (23-300); Potassium 3.7 mmol/L (3.4-5.1); Sodium 137 mmol/L (137-145); Total Protein 7.7 g/dL (6.3-8.2)
[2020-06-15 13:40] LABS: Pregnancy Test Serum,Qual Positive (Negative)
--- NOTE | 2020-06-15 13:48 | ED.CHESTPAIN ---
HPI - Chest Pain General Chief Complaint: Chest Pain Stated Complaint: sent by [facility]/they think PE Time Seen by Provider: 06/15/20 13:18 Source: patient Mode of arrival: Ambulatory Limitations: no limitations History of Present Illness HPI narrative: Patient is a 29-year-old female here for evaluation of right-sided chest discomfort. States has been going on for the past several weeks. There are periods of time when she has a symptoms in the. Sometimes were she does not. Does seem to get worse when she takes a big deep breath. No left-sided chest discomfort. Has not tried anything for symptoms prior to arrival. Related Data Previous Rx's Medication Instructions Recorded ibuprofen 600 mg PO Q6HR PRN #20 tab 07/10/19 oxycodone 10 mg PO Q4HR PRN #10 tab 07/10/19 cyclobenzaprine 10 mg PO TID PRN #14 tab 10/22/19 etonogestrel 0.12 mg-ethinyl 1 vaginalrin VAG Q4W #3 each 11/10/19 estradiol 0.015 mg/24 hr vaginal ring celecoxib 200 mg capsule 200 mg PO DAILY #30 cap 01/14/20 methylprednisolone 4 mg tablets in See Rx Instructions PO PER PKG DIR 01/14/20 a dose pack #21 each Allergies Allergy/AdvReac Type Severity Reaction Status Date / Time dextromethorphan Allergy Mild Hives Verified 06/15/20 13:15 [From Dimetapp Cold-Congestion] diphenhydramine Allergy Mild Hives Verified 06/15/20 13:15 [From Dimetapp Cold-Congestion] guaifenesin Allergy Mild Hives Verified 06/15/20 13:15 [From Dimetapp Cold-Congestion] phenylephrine Allergy Mild Hives Verified 06/15/20 13:15 [From Dimetapp Cold-Congestion] pseudoephedrine Allergy Mild Hives Verified 06/15/20 13:15 [From Dimetapp Cold-Congestion] peach AdvReac Intermediate Swelling Verified 06/15/20 13:15 of Lip/Tongue/Throat Review of Systems Constitutional Constitutional: Denies fever(s) and Denies headache(s) ENT Ears, Nose, Mouth, and Throat: Denies headache(s) Cardiovascular Cardiovascular: Reports chest pain (Right-sided lower chest wall), Denies rapid heart rate, Denies edema, Denies leg edema and Denies lightheadedness Respiratory Respiratory: Denies cough and Reports pain on inspiration Gastrointestinal Gastrointestinal: Denies abdominal pain, Denies nausea and Denies vomiting Genitourinary Genitourinary: Denies dysuria Genitourinary: Denies dysuria and Reports vaginal discharge Musculoskeletal Musculoskeletal: Denies arthralgias, Denies back pain and Denies myalgias Integumentary/Breasts Skin/Breast: Denies lesions and Denies rash Neurologic Neurologic: Denies behavioral changes, Denies confusion and Denies headache(s) Psychiatric Psychiatric: Denies behavioral changes and Denies confusion Hematologic/Lymphatic On Anticoagulants: No Allergic/Immunologic Allergic/Immunologic: Denies urticaria Patient History Medical History Cervical radiculopathy Facet arthropathy, cervical Localized soft tissue swelling Neck pain Patient denies medical problems Surgical History [place] teeth removed Social History Smoking Status: Current every day smoker Smoking Status: Current every day smoker alcohol intake frequency: a few times a week Alcohol type: other Substance Use Type: marijuana Exam Initial Vital Signs Initial Vital Signs: Vital Signs Temperature 98.0 F 06/15/20 13:12 Pulse Rate 116 H 06/15/20 13:12 Respiratory Rate 15 06/15/20 13:12 Blood Pressure 120/77 06/15/20 13:12 Pulse Oximetry 100 06/15/20 13:12 Const General: cooperative, comfortable and well developed Limitations: mental status not altered [facility] Head: normal to inspection and normocephalic Chest Other: Some tenderness to palpation right lower chest Resp Effort & Inspection: normal respiratory effort Auscultation: clear to auscultation bilaterally Cardio Rate: tachycardic Rhythm: abnormal rhythm GI Inspection: non-distended Palpation: soft Skin Lesions: no lesions Rashes: no rashes Neuro General: patient alert, patient awake and patient oriented x3 Cognition: normal cognition Speech: speech normal Extrem General: normal to inspection and capillary refill normal Psych Appearance: grossly normal and well kempt Course Orders Ordered: ED Orders 06/15/20 13:12 Complete Blood Count AUTO DIFF Stat Comprehensive Metabolic Panel Stat HCG Quantitative /Beta subunit Stat Lipase Stat Troponin & CK Cardiac Panel Stat 06/15/20 13:16 XR chest 1V Stat EKG-12 Lead Stat 06/15/20 13:21 D Dimer Stat Test Serum,Qual Stat 06/15/20 14:12 US OB <= 14 weeks fetus Stat Discontinued Medications Aspirin (Aspirin 81 Mg Chew Tab) 324 mg PO NOW ONE Stop: 06/15/20 13:17 Last Admin: 06/15/20 13:36 Dose: 324 mg Documented by: JACEY Sodium Chloride (Normal Saline 0.9%) 1,000 mls @ 150 mls/hr IV CONT GALDINO Last Admin: 06/15/20 13:25 Dose: Not Given Documented by: JACEY Sodium Chloride (Normal Saline 0.9%) 1,000 mls @ 1,000 mls/hr IV BOLUS ONE Stop: 06/15/20 14:18 Last Infusion: 06/15/20 15:32 Dose: 0 mls/hr Documented by: Admin: 06/15/20 13:24 Dose: 1,000 mls/hr Documented by: JACEY Vital Signs Vital signs: Vital Signs - 8 hr 06/15/20 13:12 06/15/20 13:27 06/15/20 13:30 Temperature 98.0 F Pulse Rate 116 H 106 H 90 Respiratory Rate 15 22 17 Blood Pressure 120/77 Pulse Oximetry 100 100 100 06/15/20 13:59 06/15/20 14:00 06/15/20 14:23 Temperature Pulse Rate 97 H 82 98 H Respiratory Rate 22 20 22 Blood Pressure 106/61 115/57 L Pulse Oximetry 100 100 99 06/15/20 14:30 06/15/20 15:32 Temperature Pulse Rate 91 H 86 Respiratory Rate 16 18 Blood Pressure 112/58 L 102/55 L Pulse Oximetry 99 98 MDM - Chest Pain Medical Records Data Attestation: I reviewed the patient's medical records. Lab Data Attestation: I reviewed the patient's lab results. Result diagrams: 06/15/20 13:12 06/15/20 13:12 Labs: Lab Results 06/15/20 06/15/20 06/15/20 Range/Units 13:12 13:12 13:12 WBC 5.4 (4.5-11.0) X10^3/uL RBC 4.46 (4.0-5.2) X10^6/uL Hgb 13.0 (12.0-16.0) g/dL Hct 37.7 (36-46) % MCV 84.5 (80-100) fL MCH 29.0 (26-34) PG MCHC 34.4 (30-36) % RDW 12.9 (11.6-14.8) % Plt Count 255 (150-400) X10^3/uL Neut % (Auto) 59.5 (50-75) % Lymph % (Auto) 29.6 (25-40) % [place]ison % (Auto) 8.2 (3-14) % Eos % (Auto) 2.0 (2-4) % Baso % (Auto) 0.7 (0-2) % Neut # (Auto) 3200 (9630-2628) /uL Lymph # (Auto) 1600 (4128-7567) /uL Davison # (Auto) 400 (0-900) /uL Eos # (Auto) 100 (0-450) /uL Baso # (Auto) 0 (0-100) /uL D-Dimer (<230) ng/mL Sodium 137 (137-145) mmol/L Potassium 3.7 (3.4-5.1) mmol/L Chloride 103 (98-107) mmol/L Carbon Dioxide 29 (22-32) mmol/L BUN 9 (7-17) mg/dL Creatinine 0.51 L (0.52-1.04) mg/dL Estimated GFR > 60.0 (>60) mL/min BUN/Creatinine Ratio 17.6 (6-22) Glucose 100 (70-100) mg/dL Calcium 9.2 (8.4-10.2) mg/dL Total Bilirubin 0.6 (0.2-1.3) mg/dL AST 18 (14-36) IU/L ALT 12 (<35) IU/L Alkaline Phosphatase 63 (38-126) U/L Total Creatine Kinase 26 L (30-135) U/L CK-MB (CK-2) TNP CK-MB (CK-2) Rel Index TNP Troponin I < 0.012 (0.01-0.034) ng/mL Total Protein 7.7 (6.3-8.2) g/dL Albumin 4.4 (3.5-5.0) g/dL Globulin 3.3 (1.7-4.1) g/dL Albumin/Globulin Ratio 1.3 (1.0-2.8) Lipase 58 (23-300) U/L HCG, Quant 78213 mIU/mL Serum , Qual (Negative) 06/15/20 06/15/20 Range/Units 13:21 13:21 WBC (4.5-11.0) X10^3/uL RBC (4.0-5.2) X10^6/uL Hgb (12.0-16.0) g/dL Hct (36-46) % MCV (80-100) fL MCH (26-34) PG MCHC (30-36) % RDW (11.6-14.8) % Plt Count (150-400) X10^3/uL Neut % (Auto) (50-75) % Lymph % (Auto) (25-40) % [place] % (Auto) (3-14) % Eos % (Auto) (2-4) % Baso % (Auto) (0-2) % Neut # (Auto) (3033-5763) /uL Lymph # (Auto) (7753-6385) /uL Davison # (Auto) (0-900) /uL Eos # (Auto) (0-450) /uL Baso # (Auto) (0-100) /uL D-Dimer < 200 (<230) ng/mL Sodium (137-145) mmol/L Potassium (3.4-5.1) mmol/L Chloride (98-107) mmol/L Carbon Dioxide (22-32) mmol/L BUN (7-17) mg/dL Creatinine (0.52-1.04) mg/dL Estimated GFR (>60) mL/min BUN/Creatinine Ratio (6-22) Glucose (70-100) mg/dL Calcium (8.4-10.2) mg/dL Total Bilirubin (0.2-1.3) mg/dL AST (14-36) IU/L ALT (<35) IU/L Alkaline Phosphatase (38-126) U/L Total Creatine Kinase (30-135) U/L CK-MB (CK-2) CK-MB (CK-2) Rel Index Troponin I (0.01-0.034) ng/mL Total Protein (6.3-8.2) g/dL Albumin (3.5-5.0) g/dL Globulin (1.7-4.1) g/dL Albumin/Globulin Ratio (1.0-2.8) Lipase (23-300) U/L HCG, Quant mIU/mL Serum , Qual Positive H (Negative) Point of Care Testing Test Results Positive Urine Dip Bedside Urine Glucose Negative Bedside Urine Bilirubin - Negative Bedside Urine Ketone - Negative Urine Specific [place] 1.025 Bedside Urine Occult Blood - Negative Bedside Urine pH 6.0 Bedside Urine Protein - Negative Bedside Urine Urobilinogen - Negative Bedside Urine Nitrite - Negative Bedside Urine Leukocytes - Negative Esterase Imaging Data Chest x-ray: Radiologist's Impression: [address] [id number] ReportSigned Patient: Sahra Fitzgerald CMR#: [id number]: 1990Acct:[id number]/Sex: / FDate of Service: 06/15/20Loc: EDAccession Number: [id number] Procedure: XR chest 1V Ordering Provider: Jerson Pappas D.O. PROCEDURE: XR CHEST 1V INDICATIONS: sob TECHNIQUE: One view of the chest was acquired. COMPARISON: None. FINDINGS: Surgical changes and devices: None. Lungs and pleura: Lungs are clear. No pleural effusions or pneumothorax. Mediastinum: Mediastinal contours appear normal. Heart size is normal. Bones and chest wall: No suspicious bony lesions. Overlying soft tissues appear unremarkable. IMPRESSION: No acute cardiopulmonary pathology. Dictated by: Manpreet Kowalski M.D. on 06/15/2020 at 13:15 Approved by: Manpreet Kowalski M.D. on 06/15/2020 at 13:19 US - OB: Radiologist's Impression: [address] [id number] ReportSigned Patient: Sahra Fitzgerald CMR#: [id number]: 1990Acct:[id number]/Sex: 29 / FDate of Service: 06/15/20Loc: EDAccession Number: [id number] Procedure: US OB <= 14 weeks fetus Ordering Provider: Jerson Pappas D.O. PROCEDURE: US OB <= 14 WEEKS FETUS INDICATIONS: DATES OUTSIDE/PRIOR DATING DATA: Last menstrual period (LMP): 05/07/2020. LMP-based estimated date of delivery (AJITH): 02/11/2021. First dating scan (date and location): 06/15/2020. Estimated date of delivery (AJITH) from first dating scan: 02/10/2021. TECHNIQUE: Real-time scanning was performed of the fetus and maternal pelvic organs, with image documentation. Endovaginal scanning was also performed to better visualize the fetus and maternal ovaries. COMPARISON: None. FINDINGS: Embryo: There is a gestational sac at the uterine fundus measuring 1 cm. A small yolk sac is present. There is no pole identified. No heart tones detected. Measurement variability in dating: +/- 4 weeks by LMP, +/- 7 days by mean sac diameter (use before 6 weeks gestation if crown-rump length not able to be measured), +/- 5 days by crown-rump length (up to 8 weeks 6 days gestation), +/- 7 days by crown-rump length (up to 13 weeks 6 days gestation). Maternal organs: Simple cyst in the left ovary. Otherwise normal appearance of the ovaries. IMPRESSION: Early intrauterine gestation with estimated ultrasound age of 5 weeks, 5 days. Dictated by: Александр Diop M.D. on 06/15/2020 at 15:13 Approved by: Александр Diop M.D. on 06/15/2020 at 15:15 ECG Data Attestation: I personally reviewed and interpreted this ECG as follows: Prior ECG tracings: not available for review Interpretation: Sinus rhythm Ventricular rate 84 Normal axis Normal QRS Normal QTC No ST T wave changes MDM Narrative Medical decision making narrative: Patient's chest x-ray and EKG your unremarkable. Her D-dimer is negative and I feel that a pulmonary embolism is unlikely. During her workup here today it was found that her test was positive. She states that she is 2 weeks late with regard to her menses. Pelvic ultrasound shows a 5 week IUP. She is having some vaginal discharge but no bleeding. She is a smoker and she was instructed that she should stop smoking because of the . She expressed understanding of this. She is going to buy [id number] vitamins. She does have a OB provider that she has seen in the past she would like contact. I have also low suspicion that her right-sided chest pain is pneumonia. Her chest x-ray is unremarkable. I do suspect this is musculoskeletal. She was given return precautions and follow-up instructions. She expressed understanding and agreement. Discharge Plan Departure Patient Disposition: Home Clinical Impression: Right-sided chest wall pain Qualifiers: Weeks of gestation: less than 8 weeks Qualified Code(s): Z3A.01 - Less than 8 weeks gestation of Instructions: DI for -- Discomforts and Remedies Activity Restrictions/Additional Instructions: I do recommend that you quit smoking. Contact the OB provider of your choice like we discussed for follow-up. Contact your primary provider for follow-up as well. Return to the emergency department for any new or worsening symptoms Prescriptions: No Action etonogestrel-ethinyl estradiol [NuvaRing] 0.12-0.015 mg/24 hr ring 1 vaginalrin VAG Q4W Qty: 3 RF: 4 ibuprofen 600 mg Tablet 600 mg PO Q6HR PRN (Reason: Pain, Mild (1-3)) Qty: 20 RF: 0 Hold Instructions: Home Medication placed on hold at Doctor's office oxycodone 10 mg Tablet 10 mg PO Q4HR PRN (Reason: Pain, Severe (7-10)) Qty: 10 RF: 0 cyclobenzaprine 10 mg tablet 10 mg PO TID PRN (Reason: muscle spasm) Qty: 14 RF: 0 celecoxib [Celebrex] 200 mg capsule 200 mg PO DAILY Qty: 30 RF: 2 methylprednisolone [Medrol (Jose De Jesus)] 4 mg tablets,dose pack See Rx Instructions PO PER PKG DIR Qty: 21 RF: 0
[2020-06-15 13:49] LABS: Troponin I < 0.012 ng/mL (0.01-0.034)
--- NOTE | 2020-06-15 14:12 | DI.US.S_ITS ---
PROCEDURE: US OB <= 14 WEEKS FETUS INDICATIONS: DATES OUTSIDE/PRIOR DATING DATA: Last menstrual period (LMP): 05/07/2020. LMP-based estimated date of delivery (AJITH): 02/11/2021. First dating scan (date and location): 06/15/2020. Estimated date of delivery (AJITH) from first dating scan: 02/10/2021. TECHNIQUE: Real-time scanning was performed of the fetus and maternal pelvic organs, with image documentation. Endovaginal scanning was also performed to better visualize the fetus and maternal ovaries. COMPARISON: None. FINDINGS: Embryo: There is a gestational sac at the uterine fundus measuring 1 cm. A small yolk sac is present. There is no pole identified. No heart tones detected. Measurement variability in dating: +/- 4 weeks by LMP, +/- 7 days by mean sac diameter (use before 6 weeks gestation if crown-rump length not able to be measured), +/- 5 days by crown-rump length (up to 8 weeks 6 days gestation), +/- 7 days by crown-rump length (up to 13 weeks 6 days gestation). Maternal organs: Simple cyst in the left ovary. Otherwise normal appearance of the ovaries. IMPRESSION: Early intrauterine gestation with estimated ultrasound age of 5 weeks, 5 days. Dictated by: Александр Diop M.D. on 06/15/2020 at 15:13 Approved by: Александр Diop M.D. on 06/15/2020 at 15:15
[2020-06-15 14:54] LABS: HCG Quantitative /Beta subunit 12997 mIU/mL
== END 2020-06-15 15:32 | disposition home or self-care (01) ==
PROVIDERS: Emergency Provider Emergency Medicine
DX: R07.89 Other chest pain (principal); R06.02 Shortness of breath; Z32.01 Encounter for pregnancy test, result positive; Z3A.01 Less than 8 weeks gestation of pregnancy
CPT/HCPCS: 36415; 71045; 76801; 76817; 80053; 81003; 81025; 82550; 83690; 84484; 84702; 84703; 85025; 85379; 93005; 96360; 96361; 99284

== ENCOUNTER → 2020-08-31 14:59 | Outpatient (CLI) | payer OTHER, SELFPAY ==
[2020-08-31 16:54] LABS: Appearance Urine UA SL CLOUDY; Bilirubin Urine UA NEGATIVE (NEGATIVE); Color Urine UA YELLOW; Glucose Urine UA NEGATIVE (Negative); Ketones Urine UA NEGATIVE (NEGATIVE); Leukocyte Esterase Urine UA TRACE (NEGATIVE); Nitrite Urine UA NEGATIVE (Negative); Occult Blood Urine UA TRACE-LYSED (Negative); Protein Urine UA NEGATIVE (Negative); Specific Gravity Urine UA >=1.030 (1.000-1.035); Urobilinogen Urine UA 0.2 E.U./dL (0.2)
[2020-08-31 16:58] LABS: Add Manual Diff / Slide Review NO; Basophils Absolute Auto 0 /uL (0-100); Basophils Percent Auto 0.4 % (0-2); Eosinophils Absolute Auto 100 /uL (0-450); Eosinophils Percent Auto 1.3 % (2-4); Hemoglobin 11.8 g/dL (12.0-16.0); Lymphocytes Absolute Auto 1500 /uL (1100-4500); Lymphocytes Percent Auto 19.8 % (25-40); Mean Corpuscular HGB Conc 34.7 % (30-36); Mean Corpuscular Hemoglobin 29.8 PG (26-34); Mean Corpuscular Volume 85.8 fL (80-100); Monocytes Absolute Auto 400 /uL (0-900); Neutrophils Absolute Auto 5500 /uL (1500-7000); Neutrophils Percent Auto 73.5 % (50-75); Platelet Count 245 X10^3/uL (150-400); Red Blood Cell Count 3.96 X10^6/uL (4.0-5.2); Red Cell Distribution Width 13.7 % (11.6-14.8); White Blood Cell Count 7.4 X10^3/uL (4.5-11.0)
[2020-08-31 17:00] LABS: pH Urine UA 5.5 (4.5-8.0)
[2020-08-31 17:45] LABS: Bacteria Urine Moderate (10-30); Calcium Oxalate Crystals Urine Few; Culture Indicated Urine Cult Not Indicated; RBC Urine 1-5/HPF (0-5/HPF); Squamous Epithelial Cell Urine 1-5 /HPF (0-5/HPF); Urine Comments CX ORDERED; WBC Urine 5-10/HPF (0-5/HPF)
[2020-08-31 21:34] LABS: HIV 1 & 2 Ab/Ag 4th Gen Combo NEGATIVE (NEGATIVE); Hep C Virus Ab w/Reflex Quant NEGATIVE s/c (NEGATIVE); Hepatitis B Surface Antigen NEGATIVE s/c (NEGATIVE); Rubella Antibody IgG 53.2 IU/mL (>15)
[2020-09-01 06:07] LABS: RPR Screen Non Reactive (Non Reactive)
[2020-09-01 07:09] LABS: Varicella IgG Antibody 979 index (Immune >165)
[2020-09-02 20:40] LABS: AFP, Serum 31.6 ng/mL (.); Inhibin A, MoM 0.88 (.); Maternal Ethnicity Caucasian (.); Maternal Weight 118 lbs (.); Number of Fetuses No (.); OSBR Risk 1 IN 10000 (.); Results Report (.); Test Results *Screen Negative* (.); hCG, MoM 0.85 (.); hCG, Serum 35377 mIU/mL (.)
== END ==
PROVIDERS: Referring Provider Obstetrics & Gynecology; Visit Provider Obstetrics & Gynecology
DX: Z34.82 Encounter for supervision of other normal pregnancy, second trimester (principal); Z3A.16 16 weeks gestation of pregnancy
CPT/HCPCS: 36415; 80055; 81003; 81015; 82105; 82677; 84702; 86336; 86787; 86803; 87086; 87389

== ENCOUNTER → 2020-09-23 10:51 | Outpatient (CLI) | payer OTHER, SELFPAY ==
--- NOTE | 2020-09-23 10:52 | DI.US.S_ITS ---
PROCEDURE: US OB >= 14 WEEKS FETUS INDICATIONS: Anatomy Scan OUTSIDE/PRIOR DATING DATA: Last menstrual period (LMP): 05/07/2020 . LMP-based estimated date of delivery (AJITH): 02/11/2021 . First dating scan (date and location): 06/15/2020 [facility] . Estimated date of delivery (AJITH) from first dating scan: 02/10/2021 . TECHNIQUE: Real-time scanning was performed of the fetus, with image documentation and biometric measurements. COMPARISON: [facility], US, OB >= 14 WEEKS FETUS, 08/23/2020, 11:48. FINDINGS: General: A single living intrauterine gestation is present. Presentation: Cephalic. Placenta: Placental position is posterior , without previa. Amniotic fluid index: 11.1 cm, normal range is 5-24 cm. heart rate: 145 beats per minute. Maternal cervical canal: 5.1 cm long. Normal lower limit is 2.5 cm. biometrics: Biparietal diameter: 4.3 cm: 19 weeks 0 days Head circumference: 16.4 cm: 19 weeks 1 day Abdominal circumference: 15.2 cm: 20 weeks 3 days Femur length: 3.3 cm: 20 weeks 1 day Estimated gestational age from initial scan: not applicable. Composite gestational age from present scan: 19 weeks 5 days Estimated weight and percentile: 334 g. 61st percentile Measurement variability for biometric dating: +/- 7 days from 14 weeks to 15 weeks 6 days gestation, +/- 10 days from 16 weeks to 21 weeks 6 days gestation, +/- 2 weeks from 22 weeks to 27 weeks 6 days gestation, +/- 3 weeks for 28 weeks gestation or later. weight reference: 4500 g or EFW >90/95% is considered macrosomia or large for gestational age. EFW <10% is small for gestational age. EFW 5% or less is considered intra-uterine growth restriction. Anatomic survey: Neuro: Ventricles are non-dilated at less than 10 mm. Cisterna magna is normal at 3-11 mm. Cerebellum is normal in size and morphology. Nuchal skin fold: Normal at less than 6 mm between 14-21 weeks gestational age. Face: Nose and lips, facial profile are normal. Spine: No evidence for spina bifida. Heart: 4-chambered heart is present, with normal ventricular outflow tracts. Diaphragm: Diaphragm is intact. Stomach: Left-sided stomach is present. Kidneys: No hydronephrosis. Normal is less than 5 mm in 2nd trimester, less than 7 mm in 3rd trimester. Cord: 3-vessel cord has orthotopic insertion. Bladder: Normal in size. Extremities: All 4 extremities identified. IMPRESSION: 1. Single live intrauterine with a composite gestational age from current ultrasound 19 weeks 5 days. 2. Normal visualized anatomy. Dictated by: Davey Garcia M.D. on 09/23/2020 at 16:53 Approved by: Davey Garcia M.D. on 09/23/2020 at 16:56
== END ==
PROVIDERS: Referring Provider Obstetrics & Gynecology; Visit Provider Obstetrics & Gynecology
DX: Z34.82 Encounter for supervision of other normal pregnancy, second trimester (principal); Z3A.19 19 weeks gestation of pregnancy
CPT/HCPCS: 76811

== ENCOUNTER → 2020-12-17 08:26 | Outpatient (CLI) | payer OTHER, SELFPAY ==
[2020-12-17 10:20] LABS: Hematocrit 30.1 % (36-46)
[2020-12-17 10:35] LABS: GTT (PREG) 1 Hour PP 50gm Dose 102 mg/dL (76-139)
== END ==
PROVIDERS: Referring Provider Obstetrics & Gynecology; Visit Provider Obstetrics & Gynecology
DX: Z34.82 Encounter for supervision of other normal pregnancy, second trimester (principal); Z3A.23 23 weeks gestation of pregnancy
CPT/HCPCS: 36415; 82950; 85014; 85018

== ENCOUNTER → 2021-01-10 15:54 | Outpatient (CLI) | payer OTHER, SELFPAY ==
[2021-01-11 15:56] LABS: Strep Grp B PCR POS for Grp B Strep
== END ==
PROVIDERS: Visit Provider Obstetrics & Gynecology
DX: Z34.83 Encounter for supervision of other normal pregnancy, third trimester (principal); Z3A.35 35 weeks gestation of pregnancy
CPT/HCPCS: 87653

== ENCOUNTER 2021-01-18 16:00 | Outpatient (CLI) | payer OTHER, SELFPAY | END 2021-01-18 16:58 | disposition home or self-care (01) | LOC: LABOR 16:58 → OB 01-19 15:21 | PROVIDERS: Referring Provider Obstetrics & Gynecology; Visit Provider Obstetrics & Gynecology | DX: Z03.71 Encounter for suspected problem with amniotic cavity and membrane ruled out (principal); O47.03 False labor before 37 completed weeks of gestation, third trimester; Z3A.36 36 weeks gestation of pregnancy | CPT/HCPCS: 59025; 84112; G0378; G0379 ==

== ENCOUNTER → 2021-02-01 14:47 | Outpatient (CLI) | payer OTHER, SELFPAY ==
[2021-02-01 15:37] LABS: COVID19 -Nasal RAPID Negative (Negative)
[2021-02-01 20:22] LABS: Urine N gonorrhoeae NOT DETECTED
[2021-02-01 20:23] LABS: Urine Chlamydia NOT DETECTED
== END ==
PROVIDERS: Visit Provider Obstetrics & Gynecology
DX: Z34.83 Encounter for supervision of other normal pregnancy, third trimester (principal); Z3A.38 38 weeks gestation of pregnancy; Z20.822 Contact with and (suspected) exposure to COVID-19
CPT/HCPCS: 87491; 87591; 87635

== ENCOUNTER 2021-02-02 17:41 | Observation (INO) | payer OTHER, SELFPAY ==
[2021-02-02 19:20] LABS: Add Manual Diff / Slide Review NO; Basophils Absolute Auto 0 /uL (0-100); Basophils Percent Auto 0.2 % (0-2); Eosinophils Absolute Auto 200 /uL (0-450); Eosinophils Percent Auto 2.1 % (2-4); Hematocrit 30.5 % (36-46); Hemoglobin 9.9 g/dL (12.0-16.0); Lymphocytes Absolute Auto 1500 /uL (1100-4500); Lymphocytes Percent Auto 18.9 % (25-40); Mean Corpuscular HGB Conc 32.6 % (30-36); Mean Corpuscular Hemoglobin 27.3 PG (26-34); Mean Corpuscular Volume 83.8 fL (80-100); Monocytes Absolute Auto 800 /uL (0-900); Monocytes Percent Auto 10.4 % (3-14); Neutrophils Absolute Auto 5600 /uL (1500-7000); Neutrophils Percent Auto 68.4 % (50-75); Platelet Count 172 X10^3/uL (150-400); Red Blood Cell Count 3.65 X10^6/uL (4.0-5.2); White Blood Cell Count 8.2 X10^3/uL (4.5-11.0)
[2021-02-03 08:28] VITALS: BP 107/60; PULSE 90; RESP 18; TEMP 36.1
== END 2021-02-03 08:40 | disposition home or self-care (01) ==
PROVIDERS: Admitting Provider Obstetrics & Gynecology; PCP Obstetrics & Gynecology; Referring Provider Obstetrics & Gynecology; Visit Provider Obstetrics & Gynecology
DX: Z34.83 Encounter for supervision of other normal pregnancy, third trimester (principal); Z3A.38 38 weeks gestation of pregnancy
CPT/HCPCS: 85025; 86850; 86900; 86901; G0378; G0379

== ENCOUNTER 2021-02-04 20:45 | Inpatient (IN) | payer OTHER, SELFPAY ==
[2021-02-04] MEDS: DINOPROSTONE VAG (CERVIDIL) 10 MG VAG (21:56)
[2021-02-05 01:36] VITALS: BP 95/57
[2021-02-05 01:42] LABS: Add Manual Diff / Slide Review NO; Basophils Absolute Auto 0 /uL (0-100); Basophils Percent Auto 0.4 % (0-2); Eosinophils Absolute Auto 100 /uL (0-450); Eosinophils Percent Auto 1.3 % (2-4); Hematocrit 32.1 % (36-46); Hemoglobin 10.5 g/dL (12.0-16.0); Lymphocytes Absolute Auto 1300 /uL (1100-4500); Lymphocytes Percent Auto 16.9 % (25-40); Mean Corpuscular HGB Conc 32.7 % (30-36); Mean Corpuscular Hemoglobin 27.3 PG (26-34); Mean Corpuscular Volume 83.6 fL (80-100); Monocytes Absolute Auto 900 /uL (0-900); Monocytes Percent Auto 10.9 % (3-14); Neutrophils Absolute Auto 5600 /uL (1500-7000); Neutrophils Percent Auto 70.5 % (50-75); Platelet Count 197 X10^3/uL (150-400); Red Blood Cell Count 3.85 X10^6/uL (4.0-5.2); Red Cell Distribution Width 16.9 % (11.6-14.8); White Blood Cell Count 7.9 X10^3/uL (4.5-11.0)
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
[2021-02-05] MEDS: miSOPROStoL 25 MCG TABLET 50 MCG PO ×2 (14:51→19:14)
[2021-02-05] MEDS: LACTATED RINGERS 1,000 ML 100 ML IV (23:27)
[2021-02-05] MEDS: fentaNYL 100 MCG/2 ML INJ 50 MCG IV (23:28)
[2021-02-06] MEDS: miSOPROStoL 25 MCG TABLET 50 MCG PO (01:34)
[2021-02-06] MEDS: fentaNYL 100 MCG/2 ML INJ 50 MCG IV (05:38)
[2021-02-06] MEDS: PENICILLIN G POTASSIUM 5,000,000 UNIT in DEXTROSE 5% IN WATER 250 ML IV (05:51)
[2021-02-06] MEDS: OXYTOCIN PREMIX 30 UNIT/500 ML PLAST..BAG IV (09:00)
[2021-02-06] MEDS: LACTATED RINGERS 1,000 ML 100 ML IV ×2 (09:06→22:57)
--- NOTE | 2021-02-06 09:16 | PM.OBPNLAB ---
Date/Time Date Patient Seen: 02/06/21 Time Patient Seen: 09:18 Pain Control Pain control: epidural Pelvic Exam Dilation (cm): 3 Effacement (%): 75 station: -1 Amniotic membrane status: Bulging Contractions Contractions on admission: none Monitor mode: External Pitocin rate (mU/min): 2 Contraction frequency (min): 4 Contraction duration (min): 1 Contraction pattern: Regular Contraction intensity: Moderate (pt not aware of them) Status status: Category l Heart Rate Baseline: 130 Monitor Accelerations: Present Monitor Decelerations: Absent Monitor Variability: Moderate Assessment and Plan Assessment: induction ongoing Plan: continuous present management Comments: Continue prophylactic antibiotics Expectant management to
[2021-02-06] MEDS: PENICILLIN G POTASSIUM 3,000,000 UNIT/50 ML FROZ.PIGGY 100 UNIT IV (10:11)
--- NOTE | 2021-02-06 15:46 | PM.OBPNLAB ---
Date/Time Date Patient Seen: 02/06/21 Time Patient Seen: 15:46 Pain Control Pain control: epidural Pelvic Exam Dilation (cm): 7 Effacement (%): 95 station: 0 Amniotic membrane status: Ruptured Comments: Swollen at 11-1 o'clock Contractions Contractions on admission: none Monitor mode: External Pitocin rate (mU/min): 4 Contraction frequency (min): 3 Contraction duration (min): 1 Contraction pattern: Regular Contraction intensity: Strong/Firm (pt not aware of them) Status status: Category l Heart Rate Baseline: 125 Monitor Accelerations: Present Monitor Decelerations: Absent Monitor Variability: Moderate Assessment and Plan Assessment: active labor Comments: Exaggerated Cortez
--- NOTE | 2021-02-06 18:30 | PM.OBPNLAB ---
Date/Time Date Patient Seen: 02/06/21 Time Patient Seen: 18:31 Pain Control Pain control: epidural Pelvic Exam Dilation (cm): 8 Effacement (%): 95 station: 0 Amniotic membrane status: Ruptured Comments: Swollen cervix at 11 o'clock Contractions Contractions on admission: none Monitor mode: External Pitocin rate (mU/min): 6 Contraction frequency (min): 3 Contraction duration (min): 1 Contraction pattern: Regular Contraction intensity: Strong/Firm (pt not aware of them) Status status: Category l Heart Rate Baseline: 125 Monitor Accelerations: Present Monitor Decelerations: Absent Monitor Variability: Moderate Assessment and Plan Assessment: active labor and induction ongoing Comments: IUPC placed to assess adequacy of contractions Will recheck cervix in 1 hour
--- NOTE | 2021-02-06 20:06 | PM.OBPNLAB ---
Date/Time Date Patient Seen: 02/06/21 Time Patient Seen: 19:35 Pain Control Pain control: epidural Pelvic Exam Dilation (cm): 7 Effacement (%): 95 station: 0 Amniotic membrane status: Ruptured Comments: Swollen cervix at the 11 o'clock position Contractions Contractions on admission: none Monitor mode: External Pitocin rate (mU/min): 9 Contraction frequency (min): 3 Contraction duration (min): 1 Contraction pattern: Regular Contraction intensity: Strong/Firm (pt not aware of them) Intrauterine tone measurement: 180 Status status: Category l Heart Rate Baseline: 130 Monitor Accelerations: Present Monitor Decelerations: Variable Monitor Variability: Moderate Assessment and Plan Assessment: other (Stage I arrest of labor) Plan: Comments: The risks, benefits, and alternatives to a primary section were discussed with the patient and her . The risks including bleeding, infection, injury to the bowel, bladder, or ureters. She understands these risks and agrees to proceed. A full par Q was held and consent form was signed.
--- NOTE | 2021-02-06 20:08 | PM.PREOP ---
Pre-operative Note COVID-19 COVID-19 status: Negative Result date/Date tested (Pos, Neg/Pending): 02/01/21 Interval Note History & Physical reviewed/Exam performed by Physician: Yes Changes to H&P: No H&P completed within 30 days and has changed as indicated here:: 02/05/21
--- NOTE | 2021-02-06 20:09 | P.OP_ITS ---
Operative Date/Time/Diagnoses Date of procedure: 02/06/21 Pre-op diagnosis: Stage I arrest of labor Post-op diagnosis: same Procedure & Clinicians Procedure: Primary low-transverse section Same procedure as scheduled: Yes Indications: Stage I arrest of labor Swollen cervix Surgeon: Yuridia aSuer Yes if Unassisted: Yes Anesthesia Type: Epidural Operative Notes Findings: Live male infant Normal uterus, tubes and ovaries Closure Type: primary Specimen(s): cord blood Intraoperative meds administered: Duramorph, Ketorolac and Pitocin Applied: Catheter (To continuous drainage) Blood products transfused: none Procedure in detail: The patient was taken to the operating room where she was placed in the dorsal supine position with a leftward tilt. She was prepped and draped in the usual sterile fashion. A timeout was performed. After spinal analgesia was found to be adequate, a Pfannenstiel skin incision was made 2 fingerbreadths above the pubic symphysis and carried through to the underlying layer fascia. The fascia was nicked in the midline, and the incision extended bilaterally with the Payne scissors. The superior aspect of the fascial incision was grasped with a Myrna clamps, elevated, and the underlying rectus muscles dissected off sharply and bluntly. Attention was then turned to the inferior aspect of this incision which in a similar fashion was grasped with a Myrna clamps, elevated, and the underlying rectus muscles dissected off sharply and bluntly. The rectus muscles were in the midline. The peritoneum was identified, grasped between 2 hemostats, and entered sharply with the Metzenbaum scissors. This incision was extended superiorly and inferiorly with good visualization of the bladder. The bladder blade was inserted. The vesicouterine peritoneum was identified, grasped with the pickup, and entered sharply with the Metzenbaum scissors. This incision was extended bilaterally, and the bladder flap was created digitally. The bladder blade was reinserted. The lower uterine segment was incised in a transverse fashion with the scalpel. Upon entering the amniotic sac there was a small amount of clear amniotic fluid. The infant's head was delivered without difficulty. Nose and mouth were suctioned with bulb suction. The remainder of the body delivered without difficulty. The cord was double clamped and cut after 1 minute. The infant was handed off to waiting RN and RT. The placenta was delivered manually. The uterus was cleared of all clots and debris. The uterine incision was repaired with #1 chromic in a running interlocking fashion, and a second layer the same suture was used for an imbricating layer. Hemostasis was achieved. The tubes and ovaries were examined and were found to be normal. The gutters were cleared of all clots and debris. The bladder flap was reapproximated using 2-0 Vicryl in a running fashion. The parietal peritoneum was closed using 2-0 Vicryl in a running fashion. The fascia was reapproximated using 0 Vicryl in a running fashion. Subcutaneous layer was copiously irrigated with warm normal saline. 5 simple interrupted sutures of 3-0 Vicryl were placed to reapproximate the subcutaneous layer. The skin was closed with 4-0 Monocryl in a subcuticular fashion. Steri-Strips were placed. An Aquacel dressing was placed. The uterus was expressed of a small amount of old blood. Sponge, lap, and instrument counts were correct x-2. The patient tolerated the procedure well, and was taken to PACU in stable condition. Complications: none Baby 1: Infant Gender: Male Presentation: vertex Position: Left Occiput Anterior Placental Delivery Description: Manual Removal Cord Vessel Description: 3 Vessels, Nuchal Cord, Loose and Cla mped/Cut score (1 min): 9 score (5 min): 9 weight: 8 lb 13 oz Post-operative Condition: stable Disposition: PACU Aftercare: routine postop
[2021-02-06] MEDS: CEFAZOLIN 1 GM VIAL 2 GM IV (20:40)
--- NOTE | 2021-02-06 20:54 | SUR.OPER ---
Supine on Padded OR bed, head on pillow, safety belt at thigh, arms secured on padded arm boards at <90 degrees abduction. Bump under right buttock. Legs uncrossed with pillow under knees, gel pad to heels, tape over blanket to lower legs.
[2021-02-06 21:13] LABS: COVID19 - ADMIT (NP swab/PCR) Negative (Negative)
[2021-02-06 21:29] VITALS: BP 111/65; PULSE 125; RESP 16; TEMP 36.6; O2SAT 97
[2021-02-06 21:34] VITALS: BP 113/62; PULSE 108; RESP 10; O2SAT 99
[2021-02-06 21:39] VITALS: BP 107/57; PULSE 105; RESP 12; O2SAT 99
[2021-02-06] MEDS: OXYCODONE/ACETAMINOPHEN 5/325 TABLET 1 TAB PO (21:43)
[2021-02-06 21:44] VITALS: BP 111/61; PULSE 113; RESP 10; TEMP 36.6; O2SAT 99
--- NOTE | 2021-02-06 22:07 | SUR.PHASEI ---
Stable PACU stay, no nausea medicated with percocet after applesauce tolerated. Report called to JOHN Jimenez. Pt transported to room BC 4 and was left with Barbara in stable condition. Fundus firm, small amount bloody drainage. Dressing remained c/d/i. Epidural catheter still present, Dr. Werner made aware, Barbara to remove.
[2021-02-07] MEDS: KETOROLAC 30 MG/ML VIAL IV ×3 (03:17→16:00)
[2021-02-07] MEDS: OXYCODONE IR 5 MG TABLET PO ×4 (04:16→20:40)
[2021-02-07 05:53] LABS: Hematocrit 25.5 % (36-46); Hemoglobin 8.2 g/dL (12.0-16.0)
[2021-02-07 09:29] VITALS: TEMP 36.6
[2021-02-07] MEDS: DOCUSATE 100 MG CAPSULE 200 MG PO (09:30)
[2021-02-07] MEDS: FERROUS SULFATE 325 MG TABLET PO (09:32)
[2021-02-07] MEDS: PRENATAL VIT,CALC/IRON/FOLIC 1 TABLET 1 TAB PO (09:32)
[2021-02-07] MEDS: LACTATED RINGERS 1,000 ML 100 ML IV (09:33)
[2021-02-07 13:36] VITALS: TEMP 36.7
[2021-02-07 18:23] VITALS: TEMP 37.2
[2021-02-07] MEDS: IBUPROFEN 600 MG TABLET PO (20:40)
--- NOTE | 2021-02-07 20:42 | PM.OBPN.1 ---
Subjective - OB Subjective Patient comments: no complaints, pain well controlled, tolerating diet, flatus present and other (Voided without the catheter) [place] baby status: NICU [place] feeding status: exclusively bottle feeding Date Patient Seen: 02/07/21 Time Patient Seen: 13:30 Exam Vital Signs (past 8 hours): - 02/07/21 13:36 02/07/21 18:23 Temperature 98.0 F 99.0 F Oxygen Delivery Method Room Air Narrative Exam Narrative: Generally: Patient lying in bed, no acute distress Fundus: Firm at U -1 Incision: Clean dry and intact with Aquacel dressing Extremities: Trace edema, negative Homans Objective Labs Result Diagrams: 02/07/21 05:40 Labs: Laboratory Results - last 24 hr 02/06/21 02/07/21 20:15 05:40 Hgb 8.2 L Hct 25.5 L SARS-CoV-2 (PCR) Negative Assessment & Plan Plan day: 1 plan OB: routine postop care Time Spent With Patient Time: Total time spent is greater than 50% in coordination of care (as documented) at patient's floor/unit and/or counseling patient: Time with patient: less than 15 minutes
[2021-02-08] MEDS: ACETAMINOPHEN 325 MG TABLET 650 MG PO ×3 (01:32→15:20)
[2021-02-08] MEDS: OXYCODONE IR 5 MG TABLET PO ×4 (01:32→15:21)
[2021-02-08] MEDS: IBUPROFEN 600 MG TABLET PO ×2 (06:23→12:53)
[2021-02-08] MEDS: PRENATAL VIT,CALC/IRON/FOLIC 1 TABLET 1 TAB PO (09:19)
[2021-02-08 09:20] VITALS: TEMP 37.2
[2021-02-08] MEDS: DOCUSATE 100 MG CAPSULE 200 MG PO (09:20)
[2021-02-08 12:53] VITALS: TEMP 36.7
[2021-02-08 15:20] VITALS: TEMP 36.4
[2021-02-08 15:21] VITALS: TEMP 36.4
--- NOTE | 2021-02-08 18:53 | P.DS_ITS ---
Discharge Providers Provider Date of admission: 02/04/21 20:45 Discharge Date: 02/08/21 Primary care physician: Yuridia Elise MD Consults: 02/06/21 22:06 Consult to Director Counseling Bureau Routine Comment: Discharge provider: Yuridia Elise MD Summary Hospital Course Date Patient Seen: 02/08/21 Time Patient Seen: 17:30 Diagnoses: 39 weeks gestation Cervical ripening Induction of labor with Pitocin Artificial rupture of membranes Epidural analgesia Stage I arrest of labor Primary low-transverse section Hospital Course: Patient is a 30-year-old 3 para 2 who presented on February 04, 2021 for cervical ripening with Cervidil. She received 1 dose of Cervidil. On February 05, 2021 she received 2 doses of misoprostol. She progressed into early active labor and had Pitocin augmentation. Artificial rupture membranes was performed. She got to 8 cm and had a swollen cervix without any foreign exchange student coordinator 4 hours despite adequate contractions that were measured by intrauterine pressure catheter. She underwent a primary low-transverse section without complication. Her course was unremarkable and she is discharged home on day # 2/postop day # 2. She is voiding without the catheter. Pain well controlled. Ambulating without assistance. Tolerating a diet. Baby was transferred to [facility] in [place] due to persistent pulmonary hypertension Peripartum Data Infant Delivery Method: Section Laceration Description: None Episiotomy description: None Procedures: Cervical ripening with Cervidil and misoprostol Pitocin augmentation of labor Artificial rupture of membrane Primary low-transverse section Intrauterine pressure catheter complications: none 1: Gender: Male Disposition of : NICU Status at Discharge Cognitive/behavioral status at discharge: oriented Functional status at discharge: independent ambulation Overall status at discharge: patient is progressing back to baseline Time Spent with Patient Time attestation: Total time spent providing and/or coordinating discharge services: Time spent: Less than 30 minutes Objective Labs Result Diagrams: 02/07/21 05:40 Exam Vital Signs (past 8 hours): - 02/08/21 12:53 02/08/21 15:20 02/08/21 15:21 Temperature 98.0 F 97.6 F 97.6 F Oxygen Delivery Method Room Air Narrative Exam Narrative: Generally: Patient is sitting on edge of bed, no acute distress Lungs: Clear to auscultation bilaterally Cardiovascular: Regular rate and rhythm Fundus: Firm at U-2 Incision: Clean dry and intact with Aquacel dressing Extremities: Negative Homans, trace edema Discharge Plan Discharge Plan Patient Disposition: Home Provider Discharge Comment: Call with fever, chills, redness or drainage around the incision, or bleeding vaginally more than a pad in an hour Ibuprofen 600 mg every 6 hours as needed Tylenol 650 mg every 6 hours as needed Discharge orders & Medications Prescriptions: New oxycodone 5 mg tablet 5 mg PO Q4H PRN (Reason: pain) Qty: 30 RF: 0 Continued prenat.vits,kaila,jol-nkrn-esesc Tablet 1 tab PO DAILY RF: 0 ibuprofen 600 mg Tablet 600 mg PO Q6HR PRN (Reason: Pain, Mild (1-3)) Qty: 20 RF: 0 Hold Instructions: Home Medication placed on hold at Doctor's office Follow up/Referrals: Yuridia Elise MD [Primary Care Provider] - 1 Week (1 week Aquacel dressing removal with Dr. Elise on SundayFebruary 16 at 0945. Make a follow up appointment in 5 weeks at that appointment. If you have any questions/concerns or need to reschedule please call .) Diet/Activity/Treatments Diet: Regular Activity: No heavy lifting Nothing in the vagina for 6 week Skin/Wound/Dressing Care Report to your healthcare provider any signs of infection, such as:: chills, fever, increased pain, unusual drainage and unusual redness Dressing: Do not remove. Physician will remove at the 1 week visit Visit Report/Discharge Packet Instructions: DI for , DI for Prescription Opioid Use Stand Alone Forms: Discharge: Care Discharge Data Primary Care Provider: Yuridia Elise
== END 2021-02-08 18:10 | disposition home or self-care (01) | DRG 788 ==
PROVIDERS: Admitting Provider Obstetrics & Gynecology; PCP Obstetrics & Gynecology; Referring Provider Obstetrics & Gynecology; Visit Provider Obstetrics & Gynecology
PROC: 10D00Z1 Extraction of Products of Conception, Low, Open Approach (ICD-10-PCS; CPT 59514; principal; 2021-02-06 20:45)
DX: O63.0 Prolonged first stage (of labor) (principal); O99.824 Streptococcus B carrier state complicating childbirth; Z3A.39 39 weeks gestation of pregnancy; Z37.0 Single live birth; Z20.822 Contact with and (suspected) exposure to COVID-19
CPT/HCPCS: 01967; 01968; 36415; 59050; 59510; 85014; 85018; 85025; 86850; 86900; 86901; 87635; C9803; G0379; J0690; J1885; J2250; J2274; J2405; J2540; J2590; J3010

== ENCOUNTER → 2021-02-09 15:06 | Outpatient (CLI) | payer OTHER, SELFPAY ==
[2021-02-09 16:40] LABS: COVID19 -Nasal RAPID POSITIVE (Negative)
== END ==
PROVIDERS: Visit Provider Physician Assistant
DX: U07.1 COVID-19 (principal)
CPT/HCPCS: 87635

== ENCOUNTER 2021-03-07 20:25 | Emergency (ER) | payer OTHER, SELFPAY ==
[2021-03-07 20:31] VITALS: BP 115/61; PULSE 112; RESP 20; TEMP 37.4; O2SAT 98; BMI 25.4
--- NOTE | 2021-03-07 20:46 | DI.RAD.S_ITS ---
PROCEDURE: XR CHEST 1V INDICATIONS: suspected sepsis TECHNIQUE: One view of the chest was acquired. COMPARISON: [facility], CR, XR CHEST 1V, 06/15/2020, 13:31. FINDINGS: Surgical changes and devices: None. Lungs and pleura: Scattered subsegmental scarring and/or atelectasis. No acute consolidation. No pleural effusions or pneumothorax. Mediastinum: Mediastinal contours appear normal. Heart size is normal. Bones and chest wall: No suspicious bony lesions. Overlying soft tissues appear unremarkable. IMPRESSION: No acute disease. Dictated by: Ildefonso Laguerre M.D. on 03/07/2021 at 22:01 Approved by: Ildefonso Laguerre M.D. on 03/07/2021 at 22:01
[2021-03-07 21:05] LABS: Add Manual Diff / Slide Review NO; Basophils Absolute Auto 0 /uL (0-100); Basophils Percent Auto 0.4 % (0-2); Eosinophils Absolute Auto 100 /uL (0-450); Eosinophils Percent Auto 1.2 % (2-4); Hematocrit 34.4 % (36-46); Hemoglobin 11.4 g/dL (12.0-16.0); Lymphocytes Absolute Auto 1100 /uL (1100-4500); Lymphocytes Percent Auto 11.7 % (25-40); Mean Corpuscular HGB Conc 33.1 % (30-36); Mean Corpuscular Volume 81.5 fL (80-100); Monocytes Absolute Auto 500 /uL (0-900); Monocytes Percent Auto 4.9 % (3-14); Neutrophils Absolute Auto 7800 /uL (1500-7000); Neutrophils Percent Auto 81.8 % (50-75); Platelet Count 307 X10^3/uL (150-400); Red Blood Cell Count 4.21 X10^6/uL (4.0-5.2); Red Cell Distribution Width 15.9 % (11.6-14.8); White Blood Cell Count 9.5 X10^3/uL (4.5-11.0)
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
[2021-03-07 21:16] LABS: Lactate (Lactic Acid) 0.6 mmol/L (0.7-2.1)
[2021-03-07 21:19] LABS: Alanine Aminotransferase 8 IU/L (<35); Albumin 4.4 g/dL (3.5-5.0); Albumin Globulin Ratio 1.2 (1.0-2.8); Alkaline Phosphatase 109 U/L (38-126); Aspartate Aminotransferase 18 IU/L (14-36); BUN Creatinine Ratio 14.7 (6-22); Bilirubin Total 0.3 mg/dL (0.2-1.3); Blood Urea Nitrogen 10 mg/dL (7-17); Calcium 9.5 mg/dL (8.4-10.2); Carbon Dioxide 30 mmol/L (22-32); Chloride 101 mmol/L (98-107); Estimated Glomerular Filt Rate > 60.0 mL/min (>60); Globulin 3.8 g/dL (1.7-4.1); Glucose 106 mg/dL (70-100); HEMOLYSIS < 15 (0-50); Lipase 77 U/L (23-300); Potassium 4.2 mmol/L (3.4-5.1); Sodium 139 mmol/L (137-145); Total Protein 8.2 g/dL (6.3-8.2)
[2021-03-07 21:34] LABS: Procalcitonin < 0.03 ng/mL (<0.5)
--- NOTE | 2021-03-07 21:36 | PC.NURSE ---
standby for bimanual pelvic exam. Patient tolerated well.
[2021-03-07] MEDS: SODIUM CHLORIDE 0.9% 1,000 ML 1000 ML IV (21:37)
--- NOTE | 2021-03-07 21:39 | DI.CT.S_ITS ---
PROCEDURE: CT ABDOMEN PELVIS W CON INDICATIONS: Left sided abd pain after TECHNIQUE: After the administration of intravenous contrast, axial sections acquired from the lung bases to the pubic symphysis. Coronal and sagittal reformats were performed. For radiation dose reduction, the following was used: automated exposure control, adjustment of mA and/or kV according to patient size. COMPARISON: [facility], US, US OB >= 14 WEEKS FETUS, 12/09/2020, 8:53. [facility], CR, XR CHEST 1V, 03/07/2021, 21:27. FINDINGS: Image quality: Excellent. Lung bases: Unremarkable. Heart: No significant findings. ABDOMEN: Liver: Unremarkable. Gallbladder: Unremarkable. Biliary ducts: Unremarkable. Pancreas: Unremarkable. Spleen: Unremarkable. Adrenal Glands: Unremarkable. Kidneys and Ureters: Unremarkable. Stomach and Bowel: Stomach, small bowel loops, and colon are unremarkable. Peritoneum: No abnormal intraperitoneal fluid. No free air. Ventral Wall: Small fat containing umbilical hernia. Abdominal Nodes: No retroperitoneal or mesenteric adenopathy by size criteria. Vessels: Aorta and inferior vena cava are normal in size. PELVIS: Pelvic Organs: Uterus is enlarged consistent with recent . Ovaries unremarkable. No free fluid in cul-de-sac. Bladder: Unremarkable. Pelvic Nodes: No enlarged lymph nodes. Miscellaneous: No hernias are seen. Bones: Unremarkable. IMPRESSION: 1. No acute abnormalities in abdomen or pelvis. 2. Enlarged uterus consistent with recent . No fluid collections to suggest abscess. No free fluid. The result was discussed with Dr. Pappas. . Dictated by: Kameron Caldera M.D. on 03/07/2021 at 22:33 Approved by: Kameron Caldera M.D. on 03/07/2021 at 22:40
[2021-03-07 21:44] VITALS: TEMP 38.7
[2021-03-07] MEDS: HYDROCODONE/ACET 5/325 TABLET 1 TAB PO (22:11)
--- NOTE | 2021-03-07 22:59 | DI.US.S_ITS ---
PROCEDURE: US PELVIC COMPLETE INDICATIONS: Evaluate for retained products. Recent Caesarian section approximately 3 weeks ago. TECHNIQUE: Real-time scanning was performed of the pelvic organs, with image documentation. Additional endovaginal scanning was necessary due to incomplete visualization of the adnexal and endometrial structures by transabdominal scanning. COMPARISON: [facility], CT, CT ABDOMEN PELVIS W CON, 03/07/2021, 22:12. FINDINGS: Uterus: Uterus is normal in size at 10.0 x 6.5 x 5.0 cm. The endometrium measures 10.8 mm in combined thickness. There is a trace amount of anechoic fluid in the lower uterine segment and cervix. There is increased vascularity in the lower uterine segment and cervix. Ovaries: Right ovary measures 3.5 x 3.5 x 1.8 cm. Left ovary measures 4.5 x 3.0 x 1.5 cm. Other: No pathologic free abdominal or pelvic fluid. IMPRESSION: 1. Enlarged uterus consistent with recent . 2. There is a trace amount of anechoic fluid in the lower endometrial cavity and cervix. No definitive retained products of conception. 3. Endometrium is normal in thickness. There is increased vascularity in the lower uterine segment and cervix on Doppler ultrasound. The finding is nonspecific and could indicate infection or inflammation. Dictated by: Kameron Caldera M.D. on 03/08/2021 at 1:01 Approved by: Kameron Caldera M.D. on 03/08/2021 at 1:08
--- NOTE | 2021-03-07 23:59 | PC.NURSE ---
Increase pain after US. Patient unable to ambulate to restroom secondary to pain.
[2021-03-08 00:35] VITALS: BP 102/65; PULSE 78; RESP 16; TEMP 37.2; O2SAT 97
[2021-03-08 01:49] VITALS: BP 105/76; PULSE 80; RESP 12; TEMP 37.3; O2SAT 99
== END 2021-03-08 01:55 | disposition home or self-care (01) ==
PROVIDERS: Emergency Provider Emergency Medicine
DX: O90.9 Complication of the puerperium, unspecified (principal); R50.9 Fever, unspecified; R10.30 Lower abdominal pain, unspecified; R10.2 Pelvic and perineal pain
CPT/HCPCS: 36415; 71045; 74177; 76830; 76856; 80053; 81003; 81025; 83605; 83690; 84145; 85025; 87040; 96360; 96361; 99284; 99285; Q9967